=== PATIENT | female | born 1950 | race Caucasian/White ===

== ENCOUNTER 2016-12-25 10:57 | Inpatient (IN) | payer MEDICARE, BC ==
[2016-12-25] MEDS ORDERED: Temazepam 15 MG Cap PO PRN (11:21)
[2016-12-25] MEDS ORDERED: Acetaminophen 325 MG Tab PO PRN (11:21)
[2016-12-25] MEDS ORDERED: Magnesium Hydroxide 400 MG/5 ML Susp 30 ML Cup PO PRN (11:21)
[2016-12-25] MEDS: methylPREDNISolone Sodium Succinate 125 MG/2 ML SDV IVPUSH SCH (11:48)
[2016-12-25] MEDS: Lactated Ringers 1,000 ML IV SCH ×2 (12:12→23:00)
[2016-12-25] MEDS: Levofloxacin/Dextrose 5%-Water 500 MG in Premix Bag 1 BAG IV SCH (12:14)
[2016-12-25] MEDS ORDERED: Ibuprofen 200 MG Tab PO PRN (14:54)
[2016-12-25] MEDS: Albuterol/Ipratropium 3.0-0.5 MG/3 ML Neb Soln NEB SCH ×2 (15:58→20:47)
[2016-12-25] MEDS: Enoxaparin 40 MG/0.4 ML Syringe SUBCUT SCH (19:33)
[2016-12-25] MEDS: Atenolol 25 MG Tab PO SCH (19:33)
[2016-12-26] MEDS: Aspirin 325 MG Tab.EC PO SCH (07:55)
[2016-12-26] MEDS: atorvaSTATin 20 MG Tab PO SCH (07:56)
[2016-12-26] MEDS: Estradiol 1 MG Tab PO SCH (07:56)
[2016-12-26] MEDS: Atenolol 25 MG Tab PO SCH ×2 (07:57→19:22)
[2016-12-26] MEDS: Cholecalciferol (Vitamin D3) 1,000 Unit Tab PO SCH (07:57)
[2016-12-26] MEDS: Levofloxacin/Dextrose 5%-Water 500 MG in Premix Bag 1 BAG IV SCH (07:58)
[2016-12-26] MEDS: UBIDECARENONE 50 MG PO SCH (07:58)
[2016-12-26] MEDS: methylPREDNISolone Sodium Succinate 125 MG/2 ML SDV IVPUSH SCH (07:59)
[2016-12-26] MEDS: Albuterol/Ipratropium 3.0-0.5 MG/3 ML Neb Soln NEB SCH ×4 (09:05→20:30)
[2016-12-26] MEDS: Lactated Ringers 1,000 ML IV SCH ×2 (09:36→19:22)
--- NOTE | 2016-12-26 12:35 | PCM.PN ---
[id number] [employer] General: Reports: No Symptoms HEENT: Reports: no symptoms Pulmonary: Reports: shortness of breath, cough Cardiovascular: Reports: No Symptoms Gastrointestinal: Reports: No symptoms Genitourinary: Reports: no symptoms Musculoskeletal: Reports: no symptoms Skin: Reports: no symptoms Psychiatric: Reports: no symptoms (Had period of hypoxia last night, started on O2 per NC. Patient looks much better today, and states she feels better as well. No fever last night. Eating lunch. Will continue to monitor closely.) - Patient Data Vitals - most recent: Last Vital Signs Temp 97.0 F 12/26/16 08:00 Pulse 65 12/26/16 08:00 Resp 20 12/26/16 08:00 BP 121/66 12/26/16 08:00 Pulse Ox 93 L 12/26/16 08:00 Weight - most recent: 181 lb 6.4 oz I&O - last 24 hours: Intake & Output 12/25/16 12/26/16 12/26/16 22:59 06:59 14:59 Intake Total 1000 1000 Balance 1000 1000 Lab Results last 24 hrs: Laboratory Results - last 24 hr 12/25/16 Range/Units 11:21 Urine Color Yellow (YELLOW) Urine Appearance Clear (CLEAR) Urine pH 6.0 (4.5-8.0) Ur Specific [place] 1.010 (1.003-1.020) Urine Protein Negative (NEGATIVE) mg/dL Urine Glucose (UA) 250 H (NEGATIVE) mg/dL Urine Ketones Trace H (NEGATIVE) mg/dL Urine Occult Blood Negative (NEGATIVE) Urine Nitrite Negative (NEGATIVE) Urine Bilirubin Negative (NEGATIVE) Urine Urobilinogen 0.2 (0.2-1.0) EU/dL Ur Leukocyte Esterase Negative (NEGATIVE) Urine RBC Not seen (0-5) /HPF Urine WBC Not seen (0-5) /HPF Ur Squamous Epith Cells Moderate H (NOT SEEN) /HPF Urine Bacteria Few H (NOT SEEN) /HPF Urine Mucus Occasional H (NOT SEEN) /HPF Federico Results last 24 hrs: Microbiology 12/25/16 11:52 Aerobic Blood Culture - Preliminary Blood - Venous - Lab Draw NO GROWTH AFTER 1 DAY Anaerobic Blood Culture - Preliminary NO GROWTH AFTER 1 DAY 12/25/16 11:52 Aerobic Blood Culture - Preliminary Blood - Venous NO GROWTH AFTER 1 DAY Anaerobic Blood Culture - Preliminary NO GROWTH AFTER 1 DAY 12/25/16 11:21 Influenza Type A Antigen Screen - Final Nasopharyngeal Swab - Nare, Unspecified NEGATIVE INFLUENZA A VIRUS AG Influenza Type B Antigen Screen - Final Positive Influenza B Ag Med Orders - Current: Current Medications Acetaminophen (Tylenol) 650 mg PO Q4H PRN PRN Reason: Pain (Mild 1-3)/fever Albuterol/Ipratropium (Duoneb 3.0-0.5 Mg/3 Ml) 3 ml NEB QIDRT [facility] Last Admin: 12/26/16 09:05 Dose: 3 ml Aspirin (Ecotrin) 325 mg PO DAILY [facility] Last Admin: 12/26/16 07:55 Dose: 325 mg Atenolol (Tenormin) 25 mg PO BID [facility] Last Admin: 12/26/16 07:57 Dose: 25 mg Atorvastatin Calcium (Lipitor) 20 mg PO DAILY [facility] Last Admin: 12/26/16 07:56 Dose: 20 mg Cholecalciferol (Vitamin D3) 2,000 units PO DAILY [facility] Last Admin: 12/26/16 07:57 Dose: 2,000 units Enoxaparin Sodium (Lovenox) 40 mg SUBCUT Q24H [facility] Last Admin: 12/25/16 19:33 Dose: 40 mg Estradiol (Estradiol) 0.5 mg PO DAILY [facility] Last Admin: 12/26/16 07:56 Dose: 0.5 mg Lactated Ringer's (Ringers, Lactated) 1,000 mls @ 100 mls/hr IV ASDIRECTED [facility] Last Admin: 12/26/16 09:36 Dose: 100 mls/hr Levofloxacin/Dextrose 500 mg/ (Premix) 100 mls @ 100 mls/hr IV Q24H [facility] Last Admin: 12/26/16 07:58 Dose: 100 mls/hr Ibuprofen (Motrin) 600 mg PO Q6H PRN PRN Reason: Fever Last Admin: 12/25/16 15:57 Dose: 600 mg Magnesium Hydroxide (Milk Of Magnesia) 30 ml PO Q12H PRN PRN Reason: Constipation Magnesium Oxide (Magnesium Oxide) 500 mg PO DAILY [facility] Last Admin: 12/26/16 07:57 Dose: 500 mg Methylprednisolone Sodium Succinate (Solu-Medrol) 62.5 mg IVPUSH Q24H [facility] Last Admin: 12/26/16 07:59 Dose: 62.5 mg Ptom(Ubidecarenone [ (Co Q-10] 50 Mg)) 50 mg PO DAILY [facility] Last Admin: 12/26/16 07:58 Dose: Not Given Temazepam (Restoril) 15 mg PO BEDTIME PRN PRN Reason: Sleep - Exam Quality Assessment: supplemental oxygen General: alert, oriented HEENT: Pupils equal Neck: supple Lungs: Rales, Rhonchi Cardiovascular: Regular Rate Abdomen: bowel sounds present Back Exam: normal inspection Extremities: no edema Skin: warm Psy/Mental Status: alert - Problem List Review Problem List Initiated/Reviewed/Updated: Yes - My Orders Last 24 Hours: My Active Orders 12/27/16 08:00 CXR [Chest 2V] [CR] Routine
[2016-12-26] MEDS: Enoxaparin 40 MG/0.4 ML Syringe SUBCUT SCH (19:23)
[2016-12-27] MEDS: Lactated Ringers 1,000 ML IV SCH (05:15)
[2016-12-27] MEDS: methylPREDNISolone Sodium Succinate 125 MG/2 ML SDV IVPUSH SCH (07:49)
[2016-12-27] MEDS: Estradiol 1 MG Tab PO SCH (07:51)
[2016-12-27] MEDS: Aspirin 325 MG Tab.EC PO SCH (07:51)
[2016-12-27] MEDS: atorvaSTATin 20 MG Tab PO SCH (07:52)
[2016-12-27] MEDS: Atenolol 25 MG Tab PO SCH ×2 (07:53→19:32)
[2016-12-27] MEDS: Cholecalciferol (Vitamin D3) 1,000 Unit Tab PO SCH (07:54)
[2016-12-27] MEDS: UBIDECARENONE 50 MG PO SCH (07:54)
[2016-12-27] MEDS: Levofloxacin/Dextrose 5%-Water 500 MG in Premix Bag 1 BAG IV SCH (07:54)
[2016-12-27] MEDS: Albuterol/Ipratropium 3.0-0.5 MG/3 ML Neb Soln NEB SCH ×4 (09:25→21:00)
--- NOTE | 2016-12-27 09:47 | PCM.PN ---
- General Info Date of Service: 12/27/16 (Sitting up in bed loos very good, states she feels much better. BBS much improved. Will KVO IV) Functional Status: Reports: pain controlled - Review of Systems General: Reports: No Symptoms HEENT: Reports: no symptoms Pulmonary: Reports: cough Cardiovascular: Reports: No Symptoms Gastrointestinal: Reports: No symptoms Genitourinary: Reports: no symptoms Musculoskeletal: Reports: no symptoms Skin: Reports: no symptoms Neurological: Reports: No Symptoms - Patient Data Vitals - most recent: Last Vital Signs Temp 98.8 F 12/27/16 07:35 Pulse 57 L 12/27/16 07:53 Resp 20 12/27/16 07:35 BP 115/68 12/27/16 07:53 Pulse Ox 90 L 12/27/16 07:35 Weight - most recent: 181 lb 6.4 oz I&O - last 24 hours: Intake & Output 12/26/16 12/27/16 12/27/16 22:59 06:59 14:59 Intake Total 977 988 Balance 977 988 Federico Results last 24 hrs: Microbiology 12/25/16 11:52 Aerobic Blood Culture - Preliminary Blood - Venous - Lab Draw NO GROWTH AFTER 1 DAY Anaerobic Blood Culture - Preliminary NO GROWTH AFTER 1 DAY 12/25/16 11:52 Aerobic Blood Culture - Preliminary Blood - Venous NO GROWTH AFTER 1 DAY Anaerobic Blood Culture - Preliminary NO GROWTH AFTER 1 DAY Med Orders - Current: Current Medications Acetaminophen (Tylenol) 650 mg PO Q4H PRN PRN Reason: Pain (Mild 1-3)/fever Albuterol/Ipratropium (Duoneb 3.0-0.5 Mg/3 Ml) 3 ml NEB QIDRT [facility] Last Admin: 12/27/16 09:25 Dose: 3 ml Aspirin (Ecotrin) 325 mg PO DAILY [facility] Last Admin: 12/27/16 07:51 Dose: 325 mg Atenolol (Tenormin) 25 mg PO BID [facility] Last Admin: 12/27/16 07:53 Dose: 25 mg Atorvastatin Calcium (Lipitor) 20 mg PO DAILY [facility] Last Admin: 12/27/16 07:52 Dose: 20 mg Cholecalciferol (Vitamin D3) 2,000 units PO DAILY [facility] Last Admin: 12/27/16 07:54 Dose: 2,000 units Enoxaparin Sodium (Lovenox) 40 mg SUBCUT Q24H [facility] Last Admin: 12/26/16 19:23 Dose: 40 mg Estradiol (Estradiol) 0.5 mg PO DAILY [facility] Last Admin: 12/27/16 07:51 Dose: 0.5 mg Lactated Ringer's (Ringers, Lactated) 1,000 mls @ 100 mls/hr IV ASDIRECTED [facility] Last Admin: 12/27/16 05:15 Dose: 100 mls/hr Levofloxacin/Dextrose 500 mg/ (Premix) 100 mls @ 100 mls/hr IV Q24H [facility] Last Admin: 12/27/16 07:54 Dose: 100 mls/hr Ibuprofen (Motrin) 600 mg PO Q6H PRN PRN Reason: Fever Last Admin: 12/25/16 15:57 Dose: 600 mg Magnesium Hydroxide (Milk Of Magnesia) 30 ml PO Q12H PRN PRN Reason: Constipation Magnesium Oxide (Magnesium Oxide) 500 mg PO DAILY [facility] Last Admin: 12/27/16 07:52 Dose: 500 mg Methylprednisolone Sodium Succinate (Solu-Medrol) 62.5 mg IVPUSH Q24H [facility] Last Admin: 12/27/16 07:49 Dose: 62.5 mg Ptom(Ubidecarenone [ (Co Q-10] 50 Mg)) 50 mg PO DAILY [facility] Last Admin: 12/27/16 07:54 Dose: Not Given Temazepam (Restoril) 15 mg PO BEDTIME PRN PRN Reason: Sleep - Problem List Review Problem List Initiated/Reviewed/Updated: Yes - My Orders Last 24 Hours: My Active Orders 12/27/16 08:00 CXR [Chest 2V] [CR] Routine
[2016-12-27] MEDS ORDERED: Sodium Chloride 0.9% 1,000 ML IV SCH (10:00)
[2016-12-27] MEDS ORDERED: Lactated Ringers 1,000 ML IV SCH (14:10)
[2016-12-27] MEDS: Enoxaparin 40 MG/0.4 ML Syringe SUBCUT SCH (19:32)
[2016-12-28] MEDS: Levofloxacin/Dextrose 5%-Water 500 MG in Premix Bag 1 BAG IV SCH (07:40)
[2016-12-28] MEDS: Estradiol 1 MG Tab PO SCH (07:41)
[2016-12-28] MEDS: Atenolol 25 MG Tab PO SCH (07:42)
[2016-12-28] MEDS: Cholecalciferol (Vitamin D3) 1,000 Unit Tab PO SCH (07:42)
[2016-12-28 07:43] VITALS: BP 123/62
[2016-12-28] MEDS: atorvaSTATin 20 MG Tab PO SCH (07:43)
[2016-12-28] MEDS: methylPREDNISolone Sodium Succinate 125 MG/2 ML SDV IVPUSH SCH (07:43)
[2016-12-28] MEDS: Aspirin 325 MG Tab.EC PO SCH (07:44)
[2016-12-28] MEDS: UBIDECARENONE 50 MG PO SCH (07:44)
[2016-12-28] MEDS: Albuterol/Ipratropium 3.0-0.5 MG/3 ML Neb Soln NEB SCH (09:30)
--- NOTE | 2016-12-29 07:22 | DISCH ---
HISTORY: Goldie Mcclain is a 66-year-old white female, who presents herself to clinic, high fever, cough, with a diagnosis influenza B and pneumonitis. She was now started on RT treatments, IV steroids, intravenous antibiotics. At time of discharge, just a little bit of wheezing on that right lung; otherwise, she felt good, afebrile. Blood pressure was good. Lab and x- ray here in the hospital, she had some glycosuria, probably from the steroids. Positive influenza B. CBC looked good. Panel-8 looked good. Urinalysis looked good. DISPOSITION: The patient discharged home. We will see her back on a p.r.n. basis. DISCHARGE MEDICATIONS: Home medications plus Levaquin 500 daily for 6 days, prednisone 20 daily for 5 days. DISCHARGE DIAGNOSIS: 1. PNEUMONITIS. 2. INFLUENZA B. 3. HYPERTENSION. 4. HYPERLIPIDEMIA. DWAIN/HARI /[id number]
== END 2016-12-28 11:45 | disposition home or self-care (01) | DRG 195 ==
LOC: CC.MS 10:57 → UNDOADMIN 10:57 → CC.MS 11:22 → UNDOADMIN 11:22
PROVIDERS: ADMIT General Practice; ATTEND General Practice
DX: J10.00 Influenza due to other identified influenza virus with unspecified type of pneumonia (principal); I10 Essential (primary) hypertension; E78.5 Hyperlipidemia, unspecified; R09.02 Hypoxemia
CPT/HCPCS: 36415; 71020; 80053; 81001; 83735; 84443; 85025; 86140; 87040; 87804; 93005; 93010; 94640; A9270-GY; J1650; J1956; J2930; J7120

== ENCOUNTER 2017-11-21 17:47 | Inpatient (IN) | payer MEDICARE, BC ==
[2017-11-21] MEDS ORDERED: Ondansetron 4 MG/2 ML SDV IVPUSH PRN (18:02)
[2017-11-21] MEDS: Lactated Ringers 1,000 ML IV SCH (18:10)
--- NOTE | 2017-11-21 18:34 | EDM.PDOC ---
ED HPI GENERAL MEDICAL PROBLEM - General Chief Complaint: Gastrointestinal Problem Stated Complaint: vomiting Time Seen by Provider: 11/21/17 18:13 Source of Information: Reports: Patient History Limitations: Reports: No Limitations - History of Present Illness INITIAL COMMENTS - FREE TEXT/NARRATIVE: Patient presents to ER with complaints of abdominal discomfort, nausea and diarrhea. SHe had a bunionectomy on November 05 as well as they fixed her hammer toe on the 2nd digit. Saw the doctor on to have her sutures out, was feeling nauseated at that time. She states she was given Zofran to use for the nausea and they felt it was "her bodies response to the trauma with surgery". The Zofran didn't really seem to help and it caused a headache. She continually feels nauseated, has not vomited but is not eating or drinking well. Today, started with diarrhea and has had 7 loose stools since this am. She denies any blood in her stools. Patient denies fever. Relates that they did feel her surgical foot looked good, no concerns of infection. She has had a previous appendectomy. No food intolerances on a normal basis but states food is not agreeing with her right now. She did eat at [employer] that day and wonders if that caused this, however, she was already nauseated prior. Onset: Gradual Duration: Day(s): Location: Reports: Abdomen Quality: Reports: Ache Severity: Moderate Associated Symptoms: Reports: Headaches, Loss of Appetite, Nausea/Vomiting. Denies: Confusion, Chest Pain, Cough, Fever/Chills, Shortness of Breath, Weakness Abdominal Pain Score (Numeric/FACES): 10 - Related Data Allergies Allergy/AdvReac Type Severity Reaction Status Date / Time meperidine [From Demerol] Allergy Other Verified 12/25/16 11:15 Home Meds: Home Meds Aspirin 325 mg PO DAILY 06/03/16 [History] Atenolol 25 mg PO BID 06/03/16 [History] Cholecalciferol (Vitamin D3) [Vitamin D3] 2,000 unit PO DAILY 06/03/16 [History] Magnesium 500 mg PO DAILY 06/03/16 [History] Ubidecarenone [Co Q-10] 50 mg PO DAILY 06/03/16 [History] atorvaSTATin Calcium [Atorvastatin Calcium] 20 mg PO DAILY 06/03/16 [History] Estradiol 0.5 mg PO DAILY 12/25/16 [History] Past Medical History HEENT History: Reports: Impaired Vision Cardiovascular History: Reports: High Cholesterol, Hypertension, Other (See Below) Other Cardiovascular History: VENOUS INSUFFICIENCY, BLOOD CLOTTING DISORDER Respiratory History: Reports: None Gastrointestinal History: Reports: None Genitourinary History: Reports: None, Other (See Below) Other Genitourinary History: NOCTURIA, HOT FLASHES [employer]ACHINE History: Reports: None Musculoskeletal History: Reports: Arthritis, Gout, Osteoporosis, Other (See Below) Other Musculoskeletal History: CARPAL TUNNEL SYNDROME, CERVICAL DISC DISEASE Neurological History: Reports: None Psychiatric History: Reports: None Endocrine/Metabolic History: Reports: Vitamin D Deficiency, Other (See Below) Other Endocrine/Metabolic History: THYROID NODULE Hematologic History: Reports: None Oncologic (Cancer) History: Reports: None Dermatologic History: Reports: None, Other (See Below) Other Dermatologic History: ACTINIC KERATOSIS - Infectious Disease History Infectious Disease History: Reports: None - Past Surgical History Head Surgeries/Procedures: Reports: None HEENT Surgical History: Reports: Cataract Surgery, Tonsillectomy Cardiovascular Surgical History: Reports: None GI Surgical History: Reports: Appendectomy Female Surgical History: Reports: Breast Reduction, Hysterectomy, Oophorectomy, Tubal Ligation Social & Family History - Tobacco Use Smoking Status *Q: Never Smoker - Recreational Drug Use Recreational Drug Use: No ED ROS GENERAL - Review of Systems Review Of Systems: See Below Constitutional: Reports: Chills, Malaise, Weakness, Fatigue, Decreased Appetite. Denies: Fever HEENT: Reports: No Symptoms Respiratory: Denies: Shortness of Breath, Wheezing, Cough Cardiovascular: Denies: Chest Pain, Edema, Lightheadedness Endocrine: Reports: Fatigue GI/Abdominal: Reports: Abdominal Pain, Diarrhea, Decreased Appetite, Nausea. Denies: Black Stool, Bloody Stool, Vomiting : Reports: No Symptoms Musculoskeletal: Reports: Foot Pain Skin: Reports: No Symptoms, Other (incisions to right foot from recent surgery) Neurological: Reports: No Symptoms ED EXAM, GI/ABD - Physical Exam Exam: See Below Exam Limited By: No Limitations General Appearance: Alert, WD/WN, Mild Distress Ears: Normal External Exam, Normal TMs Nose: Normal Inspection, Normal Mucosa, No Blood Throat/Mouth: Normal Inspection, Normal Oropharynx Head: Normocephalic Neck: Normal Inspection, Supple, Non-Tender Respiratory/Chest: No Respiratory Distress, Lungs Clear, Normal Breath Sounds Cardiovascular: Regular Rate, Rhythm GI/Abdominal Exam: Normal Bowel Sounds, Soft, Non-Tender Extremities: Normal Inspection, Normal Capillary Refill Neurological: Alert, Oriented Skin Exam: Warm, Dry Course - Vital Signs Last Recorded V/S: Last Vital Signs Temp 97.6 F 11/21/17 17:51 Pulse 81 11/21/17 17:51 Resp 18 11/21/17 17:51 BP 107/62 11/21/17 17:51 Pulse Ox 99 11/21/17 17:51 - Orders/Labs/Meds Orders: Active Orders 24 hr Category Date Time Status AMYLASE [CHEM] Stat Lab 11/21/17 18:02 Ordered C-REACTIVE PROTEIN [CHEM] Stat Lab 11/21/17 18:02 Ordered COMPREHENSIVE METABOLIC PN,CMP [CHEM] Stat Lab 11/21/17 18:02 Ordered Lactated Ringers [Ringers, Lactated] 1,000 ml Med 11/21/17 18:15 Active IV ASDIRECTED Ondansetron [Zofran] Med 11/21/17 18:02 Active 4 mg IVPUSH Q6H PRN Medication Orders Lactated Ringer's (Ringers, Lactated) 1,000 mls @ 500 mls/hr IV ASDIRECTED [facility] Last Admin: 11/21/17 18:10 Dose: 500 mls/hr Ondansetron HCl (Zofran) 4 mg IVPUSH Q6H PRN PRN Reason: Nausea Last Admin: 11/21/17 18:10 Dose: 4 mg Labs: Laboratory Tests 11/21/17 11/21/17 Range/Units 18:02 18:02 WBC 10.2 H (5.0-10.0) 10^3/uL RBC 4.44 (4.00-5.50) 10^6/uL Hgb 14.1 (12.0-16.0) g/dL Hct 40.5 (37.0-47.0) % MCV 91.2 (82.0-94.0) fL MCH 31.8 (27.0-32.0) pg MCHC 34.8 (33.0-38.0) g/dL RDW Coeff of [place] 11.7 (11.0-15.0) % Plt Count 255 (150-400) 10^3/uL Neut % (Auto) 73.2 (35-85) % Lymph % (Auto) 18.6 (10-55) % [place] % (Auto) 7.0 (0-16) % Eos % (Auto) 1.0 (0-5) % Baso % (Auto) 0.2 (0-3) % Neut # (Auto) 7.44 H (1.80-7.00) 10^3/uL Lymph # (Auto) 1.89 (1.00-4.80) 10^3/uL [place] # (Auto) 0.71 (0.00-0.80) 10^3/uL Eos # (Auto) 0.10 (0.00-0.45) 10^3/uL Baso # (Auto) 0.02 10^3/uL Urine Color Yellow (YELLOW) Urine Appearance Clear (CLEAR) Urine pH 7.5 (4.5-8.0) Ur Specific [place] 1.015 (1.003-1.020) Urine Protein Trace H (NEGATIVE) mg/dL Urine Glucose (UA) Negative (NEGATIVE) mg/dL Urine Ketones Negative (NEGATIVE) mg/dL Urine Occult Blood Negative (NEGATIVE) Urine Nitrite Negative (NEGATIVE) Urine Bilirubin Negative (NEGATIVE) Urine Urobilinogen 0.2 (0.2-1.0) EU/dL Ur Leukocyte Esterase Negative (NEGATIVE) Meds: Medications Generic Name Dose Route Start Last Admin Trade Name Freq PRN Reason Stop Dose Admin Lactated Ringer's 1,000 mls @ 500 mls/hr 11/21/17 18:15 11/21/17 18:10 Ringers, Lactated IV 500 mls/hr ASDIRECTED [facility] Administration Ondansetron HCl 4 mg 11/21/17 18:02 11/21/17 18:10 Zofran IVPUSH 4 mg Q6H PRN Administration Nausea Departure - Departure Time of Disposition: 18:40 Disposition: Refer to Observation Condition: Fair Clinical Impression: Gastroenteritis - Discharge Information Forms: ED Department Discharge - Problem List & Annotations (1) Gastroenteritis SNOMED Code(s): 54159695 Code(s): K52.9 - NONINFECTIVE GASTROENTERITIS AND COLITIS, UNSPECIFIED Status: Acute Priority: High Current Visit: Yes - Problem List Review Problem List Initiated/Reviewed/Updated: Yes - My Orders Last 24 Hours: My Active Orders 11/21/17 18:02 AMYLASE [CHEM] Stat C-REACTIVE PROTEIN [CHEM] Stat COMPREHENSIVE METABOLIC PN,CMP [CHEM] Stat Ondansetron [Zofran] 4 mg IVPUSH Q6H PRN 11/21/17 18:15 Lactated Ringers [Ringers, Lactated] 1,000 ml IV ASDIRECTED - Assessment/Plan Admission H&P: Please use this note as an admission H&P Last 24 Hours: My Active Orders 11/21/17 18:02 AMYLASE [CHEM] Stat C-REACTIVE PROTEIN [CHEM] Stat COMPREHENSIVE METABOLIC PN,CMP [CHEM] Stat Ondansetron [Zofran] 4 mg IVPUSH Q6H PRN 11/21/17 18:15 Lactated Ringers [Ringers, Lactated] 1,000 ml IV ASDIRECTED Assessment:: Gastroenteritis Plan: Admit to observation. IV fluids. Will collect stool studies. Ligiafran for nausea. Dr. Shearer to see in am.
[2017-11-21] MEDS ORDERED: Ondansetron 4 MG Tab.DIS PO PRN (19:10)
[2017-11-21] MEDS ORDERED: Temazepam 15 MG Cap PO PRN (19:10)
[2017-11-21] MEDS: fentaNYL 100 MCG/2 ML SDV IVPUSH PRN ×3 (19:42→23:13)
[2017-11-21] MEDS: Pantoprazole 40 MG Vial IVPUSH SCH (19:58)
[2017-11-21] MEDS: atorvaSTATin 20 MG Tab PO SCH (19:58)
[2017-11-21] MEDS: Atenolol 25 MG Tab PO SCH (19:59)
[2017-11-21] MEDS ORDERED: Enoxaparin 40 MG/0.4 ML Syringe SUBCUT SCH (20:00)
[2017-11-21] MEDS ORDERED: Iopamidol 755 Mg/ML 100 ML Bottle IVPUSH ONE (22:01)
[2017-11-21] MEDS: Acetaminophen 325 MG Tab PO PRN (23:52)
[2017-11-21] MEDS: Enoxaparin 80 MG/0.8 ML Syringe SUBCUT SCH (23:52)
[2017-11-22] MEDS: Lactated Ringers 1,000 ML IV SCH ×3 (02:01→18:18)
[2017-11-22] MEDS: fentaNYL 100 MCG/2 ML SDV IVPUSH PRN ×3 (04:10→08:52)
[2017-11-22 07:42] LABS: CHLORIDE,CL 104 mEq/L (98-106); SODIUM,NA 140 mEq/L (136-145)
[2017-11-22] MEDS ORDERED: UBIDECARENONE 50 MG PO SCH (08:00)
[2017-11-22] MEDS ORDERED: Estradiol 1 MG Tab PO SCH (08:00)
[2017-11-22] MEDS: Acetaminophen 325 MG Tab PO PRN (08:56)
[2017-11-22] MEDS: Atenolol 25 MG Tab PO SCH ×2 (08:57→20:07)
[2017-11-22] MEDS: Aspirin 325 MG Tab PO SCH (08:57)
[2017-11-22] MEDS: Cholecalciferol (Vitamin D3) 1,000 Unit Tab PO SCH (09:12)
[2017-11-22] MEDS: Enoxaparin 80 MG/0.8 ML Syringe SUBCUT SCH (11:21)
[2017-11-22] MEDS: Acetaminophen/HYDROcodone 325-5 MG Tab PO PRN ×2 (11:24→16:41)
--- NOTE | 2017-11-22 11:32 | PN ---
DATE: 11/22/2017 S: This is a lady who came in yesterday with vomiting, diarrhea, probably from a flu bug but had a high D-dimer. So Roopa Alba's CTA showed multiple right pulmonary emboli. She was started on Lovenox last night. O: NECK: Supple. CHEST: Decreased breath sounds, right base. CARDIAC: Sounds were good. ABDOMEN: Soft. EXTREMITIES: Unremarkable. ASSESSMENT: 1. MULTIPLE RIGHT PULMONARY EMBOLI. 2. GASTRITIS, PROBABLY VIRAL, I BELIEVE, THAT IS WHY HER C-REACTIVE PROTEIN IS ELEVATED, BUT WE WILL FOLLOW. I DO NOT THINK SHE NEEDS ANTIBIOTICS. SHE JUST NEEDS ANTICOAGULATION AND PAIN CONTROL. DWAIN/HARI /[id number]
[2017-11-22] MEDS ORDERED: Warfarin 5 MG Tab PO ONE (12:00)
[2017-11-22] MEDS: atorvaSTATin 20 MG Tab PO SCH (20:07)
[2017-11-22] MEDS: Pantoprazole 40 MG Vial IVPUSH SCH (20:09)
[2017-11-23] MEDS: Enoxaparin 80 MG/0.8 ML Syringe SUBCUT SCH ×3 (00:03→23:42)
[2017-11-23] MEDS: Acetaminophen/HYDROcodone 325-5 MG Tab PO PRN ×3 (00:03→19:33)
[2017-11-23] MEDS: Lactated Ringers 1,000 ML IV SCH (02:12)
[2017-11-23] MEDS: Aspirin 325 MG Tab PO SCH (09:39)
[2017-11-23] MEDS: Atenolol 25 MG Tab PO SCH ×2 (09:39→19:32)
[2017-11-23] MEDS: Cholecalciferol (Vitamin D3) 1,000 Unit Tab PO SCH (09:40)
[2017-11-23 09:49] LABS: CHLORIDE,CL 104 mEq/L (98-106); SODIUM,NA 139 mEq/L (136-145)
--- NOTE | 2017-11-23 10:26 | PN ---
DATE: 11/23/2017 S: Goldie Mcclain is in with pulmonary emboli. Still running a low- grade fever and also C-reactive protein of 47. O: NECK: Supple. CHEST: Basically clear, sounds are good. ABDOMEN: Soft. Recently she had a bunionectomy of her right foot, a little bit warmth, and question if there is a mild cellulitis, so started on Rocephin. Continue anticoagulation. DWAIN/HARI /[id number]
[2017-11-23] MEDS ORDERED: cefTRIAXone 1 GM Vial IVPUSH SCH (10:45)
[2017-11-23] MEDS: Acetaminophen 325 MG Tab PO PRN (11:52)
[2017-11-23] MEDS ORDERED: Warfarin 5 MG Tab PO ONE (12:00)
[2017-11-23] MEDS: atorvaSTATin 20 MG Tab PO SCH (19:33)
[2017-11-23] MEDS: Pantoprazole 40 MG Vial IVPUSH SCH (19:35)
[2017-11-24] MEDS: Acetaminophen/HYDROcodone 325-5 MG Tab PO PRN ×2 (03:57→12:01)
[2017-11-24 07:20] LABS: CHLORIDE,CL 105 mEq/L (98-106); SODIUM,NA 139 mEq/L (136-145)
[2017-11-24] MEDS: Aspirin 325 MG Tab PO SCH (07:36)
[2017-11-24] MEDS: Cholecalciferol (Vitamin D3) 1,000 Unit Tab PO SCH (07:36)
[2017-11-24] MEDS: Atenolol 25 MG Tab PO SCH ×2 (07:36→19:36)
--- NOTE | 2017-11-24 08:43 | PCM.PN ---
- General Info Date of Service: 11/24/17 Admission Dx/Problem (Free Text): Dehydration Gastroenteritis Subjective Update: Goldie is a 67 year old female who was admitted to the hospital from the ED on 11/21/2017 for gastroenteritis. That evening she developed SOB and right lower chest pain. D-Dimer was elevated so Chest CTA was completed and patient was found to have right pulmonary emboli. She was started on Coumadin and bridged with lovenox until INR therapeutic. She reports that this morning she is feeling "lousy." She reports she had a rough night last night. She continues to have low grade fever. Continues to have pain to her right lower chest. Reports her foot, where she had previous bunionectomy, is feeling good. She has been eating more, but continues to have decreased appetite. Functional Status: Reports: Pain Controlled, Tolerating Diet - Review of Systems General: Reports: Fever, Fatigue, Night Sweats Pulmonary: Reports: Shortness of Breath, Pleuritic Chest Pain. Denies: Cough, Sputum, Wheezing Cardiovascular: Reports: Dyspnea on Exertion. Denies: Edema, Lightheadedness Gastrointestinal: Reports: No Symptoms Genitourinary: Reports: No Symptoms Musculoskeletal: Reports: No Symptoms Skin: Reports: No Symptoms Neurological: Reports: No Symptoms Psychiatric: Reports: No Symptoms - Patient Data Vitals - Most Recent: Last Vital Signs Temp 99.6 F 11/24/17 08:00 Pulse 80 11/24/17 08:00 Resp 20 11/24/17 08:00 BP 117/52 L 11/24/17 08:00 Pulse Ox 95 11/24/17 08:00 Weight - Most Recent: 176 lb 4.8 oz Lab Results Last 24 Hours: Laboratory Results - last 24 hr 11/23/17 11/23/17 11/23/17 Range/Units 07:17 07:17 07:17 WBC 8.9 (5.0-10.0) 10^3/uL RBC 3.52 L (4.00-5.50) 10^6/uL Hgb 11.1 L (12.0-16.0) g/dL Hct 33.3 L (37.0-47.0) % MCV 94.6 H (82.0-94.0) fL MCH 31.5 (27.0-32.0) pg MCHC 33.3 (33.0-38.0) g/dL RDW Coeff of Ashley 11.9 (11.0-15.0) % Plt Count 201 (150-400) 10^3/uL Neut % (Auto) 72.2 (35-85) % Lymph % (Auto) 18.6 (10-55) % Leon % (Auto) 8.2 (0-16) % Eos % (Auto) 0.8 (0-5) % Baso % (Auto) 0.2 (0-3) % Neut # (Auto) 6.46 (1.80-7.00) 10^3/uL Lymph # (Auto) 1.66 (1.00-4.80) 10^3/uL Leon # (Auto) 0.73 (0.00-0.80) 10^3/uL Eos # (Auto) 0.07 (0.00-0.45) 10^3/uL Baso # (Auto) 0.02 10^3/uL PT 18.8 H (9.7-12.3) SEC INR 1.90 H (0.92-1.18) Sodium 139 (136-145) mEq/L Potassium 3.6 (3.5-5.0) mEq/L Chloride 104 (98-106) mEq/L Carbon Dioxide 26 (21-32) mmol/L BUN 8 (7-18) mg/dL Creatinine 0.8 (0.6-1.0) mg/dL Est Cr Clr Drug Dosing 60.56 mL/min Estimated GFR (MDRD) > 60 (>=60) mL/min Glucose 104 H (75-99) mg/dL Calcium 8.3 L (8.4-10.1) mg/dL C-Reactive Protein 47.1 H (0.2-0.8) mg/dL 11/24/17 11/24/17 11/24/17 Range/Units 06:45 06:45 06:45 WBC 7.4 (5.0-10.0) 10^3/uL RBC 3.47 L (4.00-5.50) 10^6/uL Hgb 10.9 L (12.0-16.0) g/dL Hct 32.9 L (37.0-47.0) % MCV 94.8 H (82.0-94.0) fL MCH 31.4 (27.0-32.0) pg MCHC 33.1 (33.0-38.0) g/dL RDW Coeff of Ashley 11.8 (11.0-15.0) % Plt Count 197 (150-400) 10^3/uL Neut % (Auto) 67.9 (35-85) % Lymph % (Auto) 21.6 (10-55) % Leon % (Auto) 8.8 (0-16) % Eos % (Auto) 1.4 (0-5) % Baso % (Auto) 0.3 (0-3) % Neut # (Auto) 5.01 (1.80-7.00) 10^3/uL Lymph # (Auto) 1.59 (1.00-4.80) 10^3/uL Leon # (Auto) 0.65 (0.00-0.80) 10^3/uL Eos # (Auto) 0.10 (0.00-0.45) 10^3/uL Baso # (Auto) 0.02 10^3/uL PT 30.1 H (9.7-12.3) SEC INR 3.15 H (0.92-1.18) Sodium 139 (136-145) mEq/L Potassium 3.8 (3.5-5.0) mEq/L Chloride 105 (98-106) mEq/L Carbon Dioxide 28 (21-32) mmol/L BUN 11 (7-18) mg/dL Creatinine 0.9 (0.6-1.0) mg/dL Est Cr Clr Drug Dosing 53.83 mL/min Estimated GFR (MDRD) > 60 (>=60) mL/min Glucose 106 H (75-99) mg/dL Calcium 7.8 L (8.4-10.1) mg/dL C-Reactive Protein 20.9 H (0.2-0.8) mg/dL Med Orders - Current: Current Medications Acetaminophen (Tylenol) 650 mg PO Q4H PRN PRN Reason: Pain (Mild 1-3)/fever Last Admin: 11/23/17 11:52 Dose: 650 mg Hydrocodone Bitart/Acetaminophen ([place] 325-5 Mg) 1 - 2 tab PO Q6H PRN PRN Reason: Pain Last Admin: 11/24/17 03:57 Dose: 1 tab Aspirin (Aspirin) 325 mg PO DAILY [facility] Last Admin: 11/24/17 07:36 Dose: 325 mg Atenolol (Tenormin) 25 mg PO BID [facility] Last Admin: 11/24/17 07:36 Dose: 25 mg Atorvastatin Calcium (Lipitor) 20 mg PO BEDTIME [facility] Last Admin: 11/23/17 19:33 Dose: 20 mg Ceftriaxone Sodium (Rocephin) 1 gm IVPUSH Q24H [facility] Last Admin: 11/23/17 11:37 Dose: 1 gm Cholecalciferol (Vitamin D3) 2,000 units PO DAILY [facility] Last Admin: 11/24/17 07:36 Dose: 2,000 units Fentanyl (Sublimaze) 25 - 50 mcg IVPUSH Q2H PRN PRN Reason: Pain Last Admin: 11/22/17 08:52 Dose: 50 mcg Magnesium Oxide (Magnesium Oxide) 500 mg PO DAILY [facility] Last Admin: 11/24/17 07:36 Dose: 500 mg Ubidecarenone [Co Q- (10] 50mg) 50 mg PO DAILY [facility] Ondansetron HCl (Zofran) 4 mg IVPUSH Q6H PRN PRN Reason: Nausea Last Admin: 11/21/17 18:10 Dose: 4 mg Ondansetron HCl (Zofran Odt) 4 mg PO Q4H PRN PRN Reason: nausea, able to take PO Pantoprazole Sodium (Protonix Iv) 40 mg IVPUSH Q24H [facility] Last Admin: 11/23/17 19:35 Dose: 40 mg Temazepam (Restoril) 15 mg PO BEDTIME PRN PRN Reason: Sleep Discontinued Medications Enoxaparin Sodium (Lovenox) 40 mg SUBCUT BEDTIME [facility] Last Admin: 11/21/17 19:58 Dose: 40 mg Enoxaparin Sodium (Lovenox) 80 mg SUBCUT Q12H [facility] Last Admin: 11/23/17 23:42 Dose: 80 mg Estradiol (Estradiol) 0.5 mg PO DAILY [facility] Last Admin: 11/22/17 08:57 Dose: 0.5 mg Fentanyl (Sublimaze) 25 - 50 mcg IVPUSH Q6H PRN PRN Reason: Pain Last Admin: 11/21/17 20:23 Dose: 25 mcg Lactated Ringer's (Ringers, Lactated) 1,000 mls @ 125 mls/hr IV ASDIRECTED DIVINE Last Admin: 11/23/17 02:12 Dose: 125 mls/hr Iopamidol (Isovue-370 (76%)) 100 ml IVPUSH ONETIME ONE Stop: 11/21/17 22:02 Last Admin: 11/21/17 22:31 Dose: 100 ml Warfarin Sodium (Coumadin) 10 mg PO ONETIME ONE Stop: 11/22/17 12:01 Last Admin: 11/22/17 11:21 Dose: 10 mg Warfarin Sodium (Coumadin) 5 mg PO ONETIME ONE Stop: 11/23/17 12:01 Last Admin: 11/23/17 11:37 Dose: 5 mg - Exam Quality Assessment: DVT Prophylaxis. No: Supplemental Oxygen General: Alert, Oriented, No Acute Distress Neck: Supple Lungs: Clear to Auscultation, Normal Respiratory Effort Cardiovascular: Regular Rate, Regular Rhythm GI/Abdominal Exam: Normal Bowel Sounds, Soft, Non-Tender, No Organomegaly, No Distention, No Abnormal Bruit, No Mass, Pelvis Stable Back Exam: Normal Inspection, Full Range of Motion. No: CVA Tenderness (L), CVA Tenderness (R) Extremities: Normal Inspection, Normal Range of Motion, Non-Tender, No Pedal Edema, Normal Capillary Refill Peripheral Pulses: 2+: Dorsalis Pedis (R) Skin: Warm, Dry, Intact Wound/Incisions: Healing Well, Dressing Dry and Intact Neurological: No New Focal Deficit Psy/Mental Status: Alert, Normal Affect, Normal Mood - Problem List & Annotations (1) Pulmonary embolism and infarction SNOMED Code(s): 4546008635166 Code(s): I26.99 - OTHER PULMONARY EMBOLISM WITHOUT ACUTE COR PULMONALE Status: Acute Priority: High Current Visit: Yes (2) Hyperlipidemia SNOMED Code(s): 58439367 Code(s): E78.5 - HYPERLIPIDEMIA, UNSPECIFIED Status: Chronic Priority: Low Current Visit: No (3) Hypertension SNOMED Code(s): 78901140 Code(s): I10 - ESSENTIAL (PRIMARY) HYPERTENSION Status: Chronic Priority : Low Current Visit: No (4) Cellulitis of foot without toes, right SNOMED Code(s): 955176451 Code(s): L03.115 - CELLULITIS OF RIGHT LOWER LIMB Status: Acute Current Visit: Yes - Problem List Review Problem List Initiated/Reviewed/Updated: Yes - My Orders Last 24 Hours: My Active Orders 11/23/17 10:45 cefTRIAXone [Rocephin] 1 gm IVPUSH Q24H 11/23/17 Breakfast Regular Diet [DIET] 11/24/17 12:00 Warfarin [Coumadin] 2.5 mg PO ONETIME 11/25/17 06:00 BMP [BASIC METABOLIC PANEL,BMP] [CHEM] DAILY C-REACTIVE PROTEIN [CHEM] DAILY CBC WITH AUTO DIFF [HEME] DAILY INR,PT,PROTHROMBIN TIME [COAG] DAILY - Assessment Assessment:: Right pulmonary Emboli Cellulitis Hypertension Hyperlipidemia - Plan Plan:: Patient continues to have low grade fever. Right foot is mildly reddened and warm to touch. No purulent drainage noted. Did have night sweats last night. She is clammy at time of morning rounds. CRP down to 20.9 from 47.1 yesterday. WBC remains normal at 7.4. Encourage incentive spirometer use Discontinue lovenox as INR is therapeutic at 3.15. 2.5 mg today. Possible discharge tomorrow if patient remains afebrile and INR remains therapeutic. Patient was examined by Dr. Shearer upon morning rounds as well, who agrees with POC.
[2017-11-24] MEDS: cefTRIAXone 1 GM Vial IVPUSH SCH (11:56)
[2017-11-24] MEDS ORDERED: Warfarin 2.5 MG Tab PO ONE (12:00)
[2017-11-24] MEDS: Acetaminophen 325 MG Tab PO PRN ×2 (16:36→21:20)
[2017-11-24] MEDS: atorvaSTATin 20 MG Tab PO SCH (19:36)
[2017-11-24] MEDS: Pantoprazole 40 MG Vial IVPUSH SCH (19:37)
[2017-11-25] MEDS: Acetaminophen 325 MG Tab PO PRN (07:34)
[2017-11-25 07:35] LABS: CHLORIDE,CL 104 mEq/L (98-106); SODIUM,NA 141 mEq/L (136-145)
[2017-11-25] MEDS: Cholecalciferol (Vitamin D3) 1,000 Unit Tab PO SCH (07:38)
[2017-11-25] MEDS: Atenolol 25 MG Tab PO SCH ×2 (07:38→21:01)
[2017-11-25] MEDS: Aspirin 325 MG Tab PO SCH (07:38)
[2017-11-25] MEDS ORDERED: Warfarin 5 MG Tab PO SCH (08:00)
--- NOTE | 2017-11-25 11:01 | PN ---
DATE: 11/25/2017 S: Goldie Mcclain is in with multiple pulmonary emboli. She says she feels better, less pain. O: NECK: Supple. CHEST: Clear. CARDIAC: Sounds are good. ABDOMEN: Soft. ASSESSMENT: MULTIPLE PULMONARY EMBOLI. P: Continue anticoagulation. C-reactive protein is up a little bit. I do not know if that is just related to C-reactive protein or whether there is a mild inflammation from her bunion surgery on her right foot, but continue antibiotics and continue watching her. DWAIN/HARI /[id number]
[2017-11-25] MEDS: cefTRIAXone 1 GM Vial IVPUSH SCH (11:47)
[2017-11-25] MEDS ORDERED: Iopamidol 755 Mg/ML 100 ML Bottle IVPUSH ONE (14:26)
[2017-11-25] MEDS ORDERED: Levofloxacin/Dextrose 5%-Water 500 MG in Premix Bag 1 BAG IV SCH (20:00)
[2017-11-25] MEDS: atorvaSTATin 20 MG Tab PO SCH (21:01)
[2017-11-25] MEDS: Pantoprazole 40 MG Vial IVPUSH SCH (21:01)
[2017-11-25] MEDS ORDERED: Loperamide 2 MG Cap PO PRN (22:27)
[2017-11-26 07:23] VITALS: BP 112/57
[2017-11-26 07:34] LABS: CHLORIDE,CL 105 mEq/L (98-106); SODIUM,NA 141 mEq/L (136-145)
[2017-11-26] MEDS: Cholecalciferol (Vitamin D3) 1,000 Unit Tab PO SCH (08:06)
[2017-11-26] MEDS: Aspirin 325 MG Tab PO SCH (08:06)
[2017-11-26] MEDS: Atenolol 25 MG Tab PO SCH (08:06)
--- NOTE | 2017-11-29 08:00 | DISCH ---
HOSPITAL COURSE: This is a 67-year-old white female came in with shortness of breath, chest pain, made diagnosis of multiple pulmonary emboli right side. She was started on anticoagulants, developed the fever and C-reactive proteins were elevated. So, I did a repeat CTA yesterday, no new blood clots, but she has now got a pleural effusion right lung with an infiltrate. CT abdomen looked good. Rest of lab, CBC looked good. Hemoglobin did drop a little bit, but it is back up to 11.6. Panel-8 were great. Urine was good. INRs were adequate. C- reactive protein got as high as 23, had dropped down to 11 today. DISPOSITION: The patient now discharged to swing bed. DISCHARGE INSTRUCTIONS: Continue IV therapy and monitoring anticoagulation. DISCHARGE MEDICATIONS: Hospital medications plus Zofran. DISCHARGE DIAGNOSIS: 1. PULMONARY EMBOLI RIGHT LOWER LOBE. 2. RIGHT LOWER LOBE PNEUMONITIS. DWAIN/HARI /[id number]
== END 2017-11-26 08:35 | disposition swing bed (61) | DRG 175 ==
LOC: CC.ED 17:47 → UNDOADMOB 18:30 → CC.MS 18:30 → OBSVTOIN 11-22 09:35
PROVIDERS: ADMIT Physician Assistant Medical; ATTEND General Practice
DX: I26.99 Other pulmonary embolism without acute cor pulmonale (principal); J18.9 Pneumonia, unspecified organism; K52.9 Noninfective gastroenteritis and colitis, unspecified; L03.115 Cellulitis of right lower limb; A08.4 Viral intestinal infection, unspecified; E78.00 Pure hypercholesterolemia, unspecified; H54.7 Unspecified visual loss; I10 Essential (primary) hypertension; I87.2 Venous insufficiency (chronic) (peripheral); M19.90 Unspecified osteoarthritis, unspecified site; M81.0 Age-related osteoporosis without current pathological fracture; R19.7 Diarrhea, unspecified; R10.9 Unspecified abdominal pain; R11.0 Nausea; R51 Headache; M50.90 Cervical disc disorder, unspecified, unspecified cervical region; E55.9 Vitamin D deficiency, unspecified; R35.1 Nocturia; R53.1 Weakness; R53.83 Other fatigue; M79.671 Pain in right foot; E04.1 Nontoxic single thyroid nodule; L57.0 Actinic keratosis; N95.1 Menopausal and female climacteric states; E78.5 Hyperlipidemia, unspecified; Z88.8 Allergy status to other drugs, medicaments and biological substances; Z90.710 Acquired absence of both cervix and uterus; Z79.82 Long term (current) use of aspirin; Z79.899 Other long term (current) drug therapy
CPT/HCPCS: 36415 ×2; 71046; 71275; 74019; 80048; 80053; 81003; 82150; 82550; 83615; 84484; 85025 ×2; 85379; 86140 ×2; 93005; 96361; 96374; 99284; A9270 ×7; C9113; J1650 ×2; J2405; J3010 ×6; J7120 ×2; Q9967 ×2; 74177; 85610; 96372; 96375; 96376; G0365; G0378; J0696; J1956

== ENCOUNTER 2017-11-26 08:36 | Inpatient (IN) | payer MEDICARE, BC ==
[2017-11-26] MEDS ORDERED: Acetaminophen/HYDROcodone 325-5 MG Tab PO PRN (10:21)
[2017-11-26] MEDS ORDERED: Ondansetron 4 MG/2 ML SDV IVPUSH PRN (10:21)
[2017-11-26] MEDS ORDERED: fentaNYL 100 MCG/2 ML SDV IVPUSH PRN (10:21)
[2017-11-26] MEDS ORDERED: Temazepam 15 MG Cap PO PRN (10:21)
[2017-11-26] MEDS ORDERED: Loperamide 2 MG Cap PO PRN (10:21)
[2017-11-26] MEDS: Ondansetron 4 MG Tab.DIS PO PRN ×2 (13:03→19:45)
[2017-11-26] MEDS: Acetaminophen 325 MG Tab PO PRN (18:53)
[2017-11-26] MEDS: Pantoprazole 40 MG Vial IVPUSH SCH (19:33)
[2017-11-26] MEDS: Atenolol 25 MG Tab PO SCH (19:36)
[2017-11-26] MEDS: atorvaSTATin 20 MG Tab PO SCH (19:36)
[2017-11-26] MEDS: Levofloxacin/Dextrose 5%-Water 500 MG in Premix Bag 1 BAG IV SCH (19:47)
[2017-11-27] MEDS: Cholecalciferol (Vitamin D3) 1,000 Unit Tab PO SCH (07:22)
[2017-11-27] MEDS: Aspirin 325 MG Tab PO SCH (07:22)
[2017-11-27] MEDS: Atenolol 25 MG Tab PO SCH ×2 (07:22→19:29)
[2017-11-27] MEDS ORDERED: Non-Formulary Medication 1 Each (Ubidecarenone [Co Q-10] 50 MG) PO SCH (08:00)
[2017-11-27] MEDS: Acetaminophen 325 MG Tab PO PRN (12:31)
[2017-11-27] MEDS ORDERED: Warfarin 5 MG Tab PO ONE (19:10)
[2017-11-27] MEDS: atorvaSTATin 20 MG Tab PO SCH (19:29)
[2017-11-27] MEDS: Pantoprazole 40 MG Vial IVPUSH SCH (19:31)
[2017-11-27] MEDS: Levofloxacin/Dextrose 5%-Water 500 MG in Premix Bag 1 BAG IV SCH (19:36)
[2017-11-28] MEDS: Aspirin 325 MG Tab PO SCH (07:54)
[2017-11-28] MEDS: Atenolol 25 MG Tab PO SCH ×2 (07:55→19:29)
[2017-11-28] MEDS: Cholecalciferol (Vitamin D3) 1,000 Unit Tab PO SCH (07:56)
[2017-11-28] MEDS: atorvaSTATin 20 MG Tab PO SCH (19:19)
[2017-11-28] MEDS: Pantoprazole 40 MG Vial IVPUSH SCH (19:20)
[2017-11-28] MEDS: Levofloxacin/Dextrose 5%-Water 500 MG in Premix Bag 1 BAG IV SCH (19:22)
[2017-11-28] MEDS ORDERED: Warfarin 5 MG Tab PO ONE (20:00)
[2017-11-29] MEDS: Aspirin 325 MG Tab PO SCH (07:32)
[2017-11-29] MEDS: Cholecalciferol (Vitamin D3) 1,000 Unit Tab PO SCH (07:32)
[2017-11-29 07:35] VITALS: BP 95/52
[2017-11-29] MEDS: Atenolol 25 MG Tab PO SCH (08:46)
--- NOTE | 2017-11-30 08:27 | DISCH ---
HISTORY: This is a 67-year-old white female came in with acute right pulmonary emboli. We did start her on anticoagulation, did nicely, but C-reactive protein was elevated. I did repeat a CTA of her chest and no further pulmonary emboli, but there was an effusion and an infiltrate. She was switched from Rocephin to Levaquin, responded nicely at the time of discharge. Lungs were relatively clear. She had no further nausea and felt great. CT of the abdomen was normal. LABORATORY DATA: C-reactive protein got as high as in the 30s, at the time of discharge 3.3. PHYSICAL EXAMINATION: NECK: Supple. CHEST: Clear. CARDIAC: Cardiac sounds are good. No edema. ABDOMEN: Soft. DISPOSITION: The patient now discharged home. We will see her back in the clinic in 2 days for an INR. DISCHARGE MEDICATIONS: Include all her home medications except we are going to discontinue the estradiol, decrease her atenolol to 25 daily, and add Levaquin 500 daily for 5 days. DISCHARGE DIAGNOSIS: 1. PULMONARY EMBOLISM. 2. PNEUMONITIS. 3. HYPERTENSION. 4. HYPERLIPIDEMIA. DWAIN/HARI /[id number]
== END 2017-11-29 11:05 | disposition home or self-care (01) | DRG 947 ==
LOC: UNDOADMIN 08:36 → CC.MS 08:36
PROVIDERS: ADMIT General Practice; ATTEND General Practice
DX: R53.1 Weakness (principal); I26.99 Other pulmonary embolism without acute cor pulmonale; J18.9 Pneumonia, unspecified organism; K52.9 Noninfective gastroenteritis and colitis, unspecified; R11.2 Nausea with vomiting, unspecified; R10.9 Unspecified abdominal pain; R51 Headache; H54.7 Unspecified visual loss; E78.00 Pure hypercholesterolemia, unspecified; I10 Essential (primary) hypertension; I87.2 Venous insufficiency (chronic) (peripheral); R35.1 Nocturia; N95.1 Menopausal and female climacteric states; M19.90 Unspecified osteoarthritis, unspecified site; M81.0 Age-related osteoporosis without current pathological fracture; M50.90 Cervical disc disorder, unspecified, unspecified cervical region; E55.9 Vitamin D deficiency, unspecified; L57.0 Actinic keratosis; R53.81 Other malaise; R53.83 Other fatigue; M79.673 Pain in unspecified foot; Z90.710 Acquired absence of both cervix and uterus; Z79.82 Long term (current) use of aspirin; Z79.899 Other long term (current) drug therapy; Z88.6 Allergy status to analgesic agent
CPT/HCPCS: 36415; 85025; 85610; 86140; A9270-GY; C9113; J1956

== ENCOUNTER 2019-11-12 22:15 | Inpatient (IN) | payer MEDICARE, BC ==
[2019-11-12] MEDS ORDERED: Ondansetron 4 MG/2 ML SDV IVPUSH STA (22:27)
--- NOTE | 2019-11-12 22:30 | EDM.PDOC ---
ED HPI GENERAL MEDICAL PROBLEM - General Chief Complaint: Flank Pain Stated Complaint: "Right flank pain" Time Seen by Provider: 11/12/19 22:25 Source of Information: Reports: Patient History Limitations: Reports: No Limitations - History of Present Illness INITIAL COMMENTS - FREE TEXT/NARRATIVE: This patient is a 69 year old female that presents to the ER. Patient reports that started yesterday late afternoon with constant right lower back pain. Patient reports the pain is worse with movement. The patient reports that yesterday she took a nap and woke up feeling like she had a fever, but none since. Patient denies holt, dizziness, n, v, d, f, cough, congestion, drainage, shortness of breath, mid or upper back pain, chest pain, pelvis pain, urinary/ bowel changes. The patient denies any leg pain, numbness, tingling, urinary or bowel incontinence. Denies any injury. Onset Date: 11/12/19 Onset Time: 16:00 Duration: Day(s): (1) Location: Reports: Back Quality: Reports: Sharp Severity: Severe Improves with: Reports: None Worsens with: Reports: Movement Associated Symptoms: Reports: Fever/Chills (when woke from nap yesterday, but not since per patient. ). Denies: Confusion, Chest Pain, Cough, cough w sputum , Diaphoresis, Headaches, Loss of Appetite, Malaise, Nausea/Vomiting, Rash, Seizure, Shortness of Breath, Syncope, Weakness Treatments RADIOACTIVITY TECHNICIAN: Reports: Acetaminophen Flank Pain Score (Numeric/FACES): 9 - Related Data Allergies Allergy/AdvReac Type Severity Reaction Status Date / Time meperidine [From Demerol] Allergy Other Verified 11/12/19 22:48 Home Meds: Home Meds Aspirin 325 mg PO DAILY 06/03/16 [History] Cholecalciferol (Vitamin D3) [Vitamin D3] 2,000 unit PO DAILY 06/03/16 [History] Magnesium 500 mg PO DAILY 06/03/16 [History] Ubidecarenone [Co Q-10] 50 mg PO DAILY 06/03/16 [History] atorvaSTATin Calcium [Atorvastatin Calcium] 20 mg PO DAILY 06/03/16 [History] atenoloL [Atenolol] 25 mg PO DAILY #30 tab 11/29/17 [Rx] Past Medical History HEENT History: Reports: Impaired Vision Cardiovascular History: Reports: High Cholesterol, Hypertension, Other (See Below) Other Cardiovascular History: VENOUS INSUFFICIENCY, BLOOD CLOTTING DISORDER Respiratory History: Reports: None Gastrointestinal History: Reports: None Genitourinary History: Reports: None, Other (See Below) Other Genitourinary History: NOCTURIA, HOT FLASHES HOME CARE GIVER History: Reports: None Musculoskeletal History: Reports: Arthritis, Gout, Osteoporosis, Other (See Below) Other Musculoskeletal History: CARPAL TUNNEL SYNDROME, CERVICAL DISC DISEASE Neurological History: Reports: None Psychiatric History: Reports: None Endocrine/Metabolic History: Reports: Vitamin D Deficiency, Other (See Below) Other Endocrine/Metabolic History: THYROID NODULE Hematologic History: Reports: None Oncologic (Cancer) History: Reports: None Dermatologic History: Reports: None, Other (See Below) Other Dermatologic History: ACTINIC KERATOSIS - Infectious Disease History Infectious Disease History: Reports: None - Past Surgical History Head Surgeries/Procedures: Reports: None HEENT Surgical History: Reports: Cataract Surgery, Tonsillectomy Cardiovascular Surgical History: Reports: None GI Surgical History: Reports: Appendectomy Female Surgical History: Reports: Breast Reduction, Hysterectomy, Oophorectomy, Tubal Ligation Social & Family History - Family History Family Medical History: Noncontributory - Caffeine Use Caffeine Use: Reports: Coffee ED ROS GENERAL - Review of Systems Review Of Systems: See Below Constitutional: Reports: Fever (yesterday), Chills HEENT: Reports: No Symptoms. Denies: Rhinitis, Sinus Problem, Throat Pain, Vertigo, Vision Change Respiratory: Reports: No Symptoms. Denies: Shortness of Breath, Wheezing, Pleuritic Chest Pain, Cough, Sputum Cardiovascular: Reports: No Symptoms. Denies: Chest Pain, Dyspnea on Exertion, Edema, Lightheadedness, Palpitations, Syncope Endocrine: Reports: No Symptoms GI/Abdominal: Reports: No Symptoms. Denies: Abdominal Pain, Constipation, Diarrhea, Nausea, Vomiting : Reports: Flank Pain (right). Denies: Discharge, Dysuria, Frequency, Hematuria, Incontinence, Pain, Urgency, Urinary Retention Musculoskeletal: Reports: Back Pain (Right lower). Denies: Neck Pain, Shoulder Pain, Arm Pain, Leg Pain, Foot Pain, Joint Pain, Muscle Stiffness Skin: Reports: No Symptoms Neurological: Reports: No Symptoms. Denies: Confusion, Dizziness, Headache, Numbness, Seizure, Syncope, Tingling, Tremors, Trouble Speaking, Difficulty Walking, Weakness, Change in Speech, Gait Disturbance Psychiatric: Reports: No Symptoms Hematologic/Lymphatic: Reports: No Symptoms Immunologic: Reports: No Symptoms ED EXAM, GI/ABD - Physical Exam Exam: See Below Exam Limited By: No Limitations General Appearance: Alert, WD/WN, Anxious, Mild Distress (in pain), Obese Eyes: Bilateral: Normal Appearance Ears: Normal External Exam, Normal Canal, Hearing Grossly Normal, Normal TMs Nose: Normal Inspection, Normal Mucosa, No Blood Throat/Mouth: Normal Inspection, Normal Lips, Normal Teeth, Normal Gums, Normal Oropharynx, Normal Voice, No Airway Compromise Head: Atraumatic, Normocephalic Neck: Normal Inspection, Supple, Non-Tender, Full Range of Motion Respiratory/Chest: No Respiratory Distress, Lungs Clear, Normal Breath Sounds, No Accessory Muscle Use, Chest Non-Tender. No: Respiratory Distress, Decreased Breath Sounds, Crackles, Rales, Rhonchi, Wheezing, Stridor, Accessory Muscle Use , Splinting Cardiovascular: Normal Peripheral Pulses, Regular Rate, Rhythm, No Edema, No Gallop, No JVD, No Murmur, No Rub GI/Abdominal Exam: Soft, Non-Tender, No Organomegaly Back Exam: Normal Inspection, Full Range of Motion, CVA Tenderness (R), Decreased Range of Motion (due to pain right lower back), Paraspinal Tenderness (Right lower with palpation and twisting of the trunk. Painful to move from sitting position to laying on stretcher in the ER. ), Other (Pain is easily manipulated in this patient by palpation in right flank, tapping right flank, and movement to lay back or twist of the trunk.). No: CVA Tenderness (L), Vertebral Tenderness Extremities: Normal Inspection, Normal Range of Motion, Non-Tender, No Pedal Edema, Normal Capillary Refill Neurological: Alert, Oriented, Normal Cognition Psychiatric: Anxious, Tearful Skin Exam: Warm, Dry, Intact, Normal Color, No Rash Lymphatic: No Adenopathy Course - Vital Signs Last Recorded V/S: Last Vital Signs Temp 97.9 F 11/12/19 22:21 Pulse 82 11/12/19 22:21 Resp 20 11/12/19 22:21 BP 139/57 L 11/12/19 22:21 Pulse Ox 99 11/12/19 22:21 - Orders/Labs/Meds Orders: Active Orders 24 hr Category Date Time Status Abdomen Pelvis wo Cont [CT] Stat Exams 11/12/19 22:59 Taken CULTURE URINE [RM] Stat Lab 11/12/19 22:30 Received Labs: Laboratory Tests 11/12/19 11/12/19 11/12/19 Range/Units 22:39 22:39 22:39 WBC 11.1 H (5.0-10.0) 10^3/uL RBC 4.55 (4.00-5.50) 10^6/uL Hgb 14.3 (12.0-16.0) g/dL Hct 41.9 (37.0-47.0) % MCV 92.1 (82.0-94.0) fL MCH 31.4 (27.0-32.0) pg MCHC 34.1 (33.0-38.0) g/dL RDW Coeff of Ashley 12.6 (11.0-15.0) % Plt Count 194 (150-400) 10^3/uL Neut % (Auto) 77.0 (35-85) % Lymph % (Auto) 15.2 (10-55) % [place] % (Auto) 7.0 (0-16) % Eos % (Auto) 0.5 (0-5) % Baso % (Auto) 0.3 (0-3) % Neut # (Auto) 8.55 H (1.80-7.00) 10^3/uL Lymph # (Auto) 1.69 (1.00-4.80) 10^3/uL [place] # (Auto) 0.78 (0.00-0.80) 10^3/uL Eos # (Auto) 0.06 (0.00-0.45) 10^3/uL Baso # (Auto) 0.03 10^3/uL Sodium 139 (136-145) mEq/L Potassium 3.6 (3.5-5.0) mEq/L Chloride 103 (98-106) mEq/L Carbon Dioxide 24 (21-32) mmol/L BUN 22 H (7-18) mg/dL Creatinine 1.1 H (0.6-1.0) mg/dL Est Cr Clr Drug Dosing 44.55 mL/min Estimated GFR (MDRD) 49 L (>=60) mL/min Glucose 179 H D (75-99) mg/dL Calcium 9.0 (8.4-10.1) mg/dL Total Bilirubin 0.4 (0.0-1.0) mg/dL AST 14 L (15-37) U/L ALT 22 (12-78) U/L Alkaline Phosphatase 101 (46-116) U/L Total Protein 7.2 (6.4-8.2) g/dL Albumin 3.6 (3.4-5.0) g/dL Amylase 73 (25-115) U/L Lipase 177 (73-393) U/L Urine Color Yellow (YELLOW) Urine Appearance Slightly cloudy (CLEAR) Urine pH 6.0 (4.5-8.0) Ur Specific [place] 1.025 H (1.003-1.020) Urine Protein Negative (NEGATIVE) mg/dL Urine Glucose (UA) 250 H (NEGATIVE) mg/dL Urine Ketones Trace H (NEGATIVE) mg/dL Urine Occult Blood Negative (NEGATIVE) Urine Nitrite Negative (NEGATIVE) Urine Bilirubin Negative (NEGATIVE) Urine Urobilinogen 0.2 (0.2-1.0) EU/dL Ur Leukocyte Esterase Negative (NEGATIVE) Urine RBC 0-5 (0-5) /HPF Urine WBC 0-5 (0-5) /HPF Ur Epithelial Cells Few H (NOT SEEN) /HPF Urine Bacteria Few H (NOT SEEN) /HPF Urine Mucus Few H (NOT SEEN) /HPF Meds: Medications Discontinued Medications Generic Name Dose Route Start Last Admin Trade Name Freq PRN Reason Stop Dose Admin Sodium Chloride 1,000 mls @ 1,000 mls/hr 11/12/19 23:00 11/12/19 23:06 Normal Saline IV 11/12/19 23:59 1,000 mls/hr .BOLUS ONE Administration Morphine Sulfate 4 mg 11/12/19 22:27 11/12/19 22:34 Morphine IVPUSH 11/12/19 22:28 4 mg ONETIME ONE Administration Ondansetron HCl 4 mg 11/12/19 22:27 11/12/19 22:41 Zofran IVPUSH 11/12/19 22:28 4 mg NOW STA Administration - Radiology Interpretation Free Text/Narrative:: CT Abd/Pelvis without: No acute abnormality. CT Results Date: 11/13/19 CT Results Time: 00:20 - Re-Assessments/Exams Free Text/Narrative Re-Assessment/Exam: 11/12/19 23:11 Patient report the pain medication did help a lot. But, still has pain. 11/13/19 00:30 Patient pain level is now a 1/10. She does appear to be more comfortable, but sitting over the stretcher. Discussed with patient and her labs with elevated wbc, renal insufficiency, and her glucose elevation and glucose in urine. Her urine does not show wbc or leukocytes, but does show some bacteria. At this time I will give abx. due to bacteria and flank pain and reported fever. I did order urine cx. She is currently afebrile. Will admit for renal insufficiency, possible UTI, hydrate, and manage her pain in right lower back/ flank. Will allow PCP to evaluate in hospital tomorrow. Will repeat labs in morning to ensure no increase in wbc, renal insuff., and glucose. Patient and agree with this plan and think its a good idea. Departure - Departure Time of Disposition: 00:33 Disposition: Refer to Observation Condition: Fair Clinical Impression: Renal insufficiency, Hyperglycemia, UTI, Urinary tract infectious disease Back pain Qualifiers: Back pain location: low back pain Chronicity: acute Back pain laterality: right Sciatica presence: without sciatica Qualified Code(s): M54.5 - Low back pain - Discharge Information *PRESCRIPTION DRUG MONITORING PROGRAM REVIEWED*: Not Applicable *COPY OF PRESCRIPTION DRUG MONITORING REPORT IN PATIENT SHIRIN: Not Applicable Forms: ED Department Discharge Sepsis Event Note - Evaluation Sepsis Screening Result: No Definite Risk - Focused Exam Vital Signs: Vital Signs Temp Pulse Resp BP Pulse Ox 11/12/19 22:21 97.9 F 82 20 139/57 L 99 Date Exam was Performed: 11/13/19 Time Exam was Performed: 00:39 - My Orders Last 24 Hours: My Active Orders 11/12/19 22:30 CULTURE URINE [RM] Stat 11/12/19 22:59 Abdomen Pelvis wo Cont [CT] Stat - Assessment/Plan Last 24 Hours: My Active Orders 11/12/19 22:30 CULTURE URINE [RM] Stat 11/12/19 22:59 Abdomen Pelvis wo Cont [CT] Stat Plan: PLEASE SEE RN NOTE FOR PFSH. PLEASE USE ER H&P ADMIT H&P.
[2019-11-12] MEDS ORDERED: Sodium Chloride 0.9% 1,000 ML IV ONE (23:00)
[2019-11-13] MEDS ORDERED: Morphine 2 MG/ML Syringe IVPUSH PRN (01:05)
[2019-11-13] MEDS ORDERED: Sodium Chloride 0.9% 1,000 ML IV SCH (01:05)
[2019-11-13] MEDS ORDERED: Ondansetron 4 MG/2 ML SDV IV PRN (01:05)
[2019-11-13] MEDS ORDERED: Sodium Chloride 0.9% 500 ML IV SCH ×4 (01:15→02:45)
[2019-11-13] MEDS: Acetaminophen/HYDROcodone 325-5 MG Tab PO PRN ×3 (01:30→19:40)
[2019-11-13] MEDS ORDERED: cefTRIAXone 1 GM Vial IVPUSH ONE (01:30)
[2019-11-13] MEDS ORDERED: Enoxaparin 40 MG/0.4 ML Syringe SUBCUT ONE (01:30)
[2019-11-13] MEDS: Sodium Chloride 0.9% 500 ML ONE ×2 (01:32→01:41)
[2019-11-13 07:39] LABS: CHLORIDE,CL 107 mEq/L (98-106); SODIUM,NA 138 mEq/L (136-145)
[2019-11-13] MEDS ORDERED: ATORVASTATIN 20 MG PO SCH (08:00)
[2019-11-13] MEDS ORDERED: Atenolol 25 MG Tab PO SCH (08:00)
[2019-11-13] MEDS ORDERED: atorvaSTATin 20 MG Tab PO SCH (08:00)
[2019-11-13] MEDS ORDERED: Aspirin 325 MG Tab.EC PO SCH (08:00)
--- NOTE | 2019-11-13 11:46 | PCM.PN ---
- General Info Date of Service: 11/13/19 Admission Dx/Problem (Free Text): Renal Insufficiency UTI Elevated glucose Functional Status: Reports: Pain Controlled, Tolerating Diet, Ambulating - Review of Systems General: Reports: Fever (low grade this am), Malaise. Denies: Weakness, Fatigue HEENT: Reports: No Symptoms Pulmonary: Reports: Cough. Denies: Shortness of Breath Cardiovascular: Denies: Chest Pain Gastrointestinal: Denies: Abdominal Pain, Nausea, Vomiting Genitourinary: Reports: Flank Pain. Denies: Dysuria, Frequency Musculoskeletal: Reports: No Symptoms Skin: Reports: No Symptoms Neurological: Reports: No Symptoms - Patient Data Vitals - Most Recent: Last Vital Signs Temp 99.3 F 11/13/19 11:17 Pulse 72 11/13/19 11:17 Resp 18 11/13/19 11:17 BP 110/51 L 11/13/19 11:17 Pulse Ox 96 11/13/19 11:17 Weight - Most Recent: 181 lb 11.2 oz Lab Results Last 24 Hours: Laboratory Results - last 24 hr 11/12/19 11/12/19 11/12/19 Range/Units 22:39 22:39 22:39 WBC 11.1 H (5.0-10.0) 10^3/uL RBC 4.55 (4.00-5.50) 10^6/uL Hgb 14.3 (12.0-16.0) g/dL Hct 41.9 (37.0-47.0) % MCV 92.1 (82.0-94.0) fL MCH 31.4 (27.0-32.0) pg MCHC 34.1 (33.0-38.0) g/dL RDW Coeff of Ashley 12.6 (11.0-15.0) % Plt Count 194 (150-400) 10^3/uL Neut % (Auto) 77.0 (35-85) % Lymph % (Auto) 15.2 (10-55) % Coffee % (Auto) 7.0 (0-16) % Eos % (Auto) 0.5 (0-5) % Baso % (Auto) 0.3 (0-3) % Neut # (Auto) 8.55 H (1.80-7.00) 10^3/uL Lymph # (Auto) 1.69 (1.00-4.80) 10^3/uL Coffee # (Auto) 0.78 (0.00-0.80) 10^3/uL Eos # (Auto) 0.06 (0.00-0.45) 10^3/uL Baso # (Auto) 0.03 10^3/uL Sodium 139 (136-145) mEq/L Potassium 3.6 (3.5-5.0) mEq/L Chloride 103 (98-106) mEq/L Carbon Dioxide 24 (21-32) mmol/L BUN 22 H (7-18) mg/dL Creatinine 1.1 H (0.6-1.0) mg/dL Est Cr Clr Drug Dosing 44.55 mL/min Estimated GFR (MDRD) 49 L (>=60) mL/min Glucose 179 H D (75-99) mg/dL Lactic Acid (0.4-2.0) mmol/L Calcium 9.0 (8.4-10.1) mg/dL Magnesium (1.8-2.4) mg/dL Total Bilirubin 0.4 (0.0-1.0) mg/dL AST 14 L (15-37) U/L ALT 22 (12-78) U/L Alkaline Phosphatase 101 (46-116) U/L Total Protein 7.2 (6.4-8.2) g/dL Albumin 3.6 (3.4-5.0) g/dL Amylase 73 (25-115) U/L Lipase 177 (73-393) U/L Urine Color Yellow (YELLOW) Urine Appearance Slightly cloudy (CLEAR) Urine pH 6.0 (4.5-8.0) Ur Specific [place] 1.025 H (1.003-1.020) Urine Protein Negative (NEGATIVE) mg/dL Urine Glucose (UA) 250 H (NEGATIVE) mg/dL Urine Ketones Trace H (NEGATIVE) mg/dL Urine Occult Blood Negative (NEGATIVE) Urine Nitrite Negative (NEGATIVE) Urine Bilirubin Negative (NEGATIVE) Urine Urobilinogen 0.2 (0.2-1.0) EU/dL Ur Leukocyte Esterase Negative (NEGATIVE) Urine RBC 0-5 (0-5) /HPF Urine WBC 0-5 (0-5) /HPF Ur Epithelial Cells Few H (NOT SEEN) /HPF Urine Bacteria Few H (NOT SEEN) /HPF Urine Mucus Few H (NOT SEEN) /HPF 11/13/19 11/13/19 11/13/19 Range/Units 07:00 07:00 07:05 WBC 7.9 (5.0-10.0) 10^3/uL RBC 3.96 L (4.00-5.50) 10^6/uL Hgb 12.5 (12.0-16.0) g/dL Hct 37.5 (37.0-47.0) % MCV 94.7 H (82.0-94.0) fL MCH 31.6 (27.0-32.0) pg MCHC 33.3 (33.0-38.0) g/dL RDW Coeff of Ashley 12.6 (11.0-15.0) % Plt Count 161 (150-400) 10^3/uL Neut % (Auto) 60.2 (35-85) % Lymph % (Auto) 30.3 (10-55) % Coffee % (Auto) 8.3 (0-16) % Eos % (Auto) 0.8 (0-5) % Baso % (Auto) 0.4 (0-3) % Neut # (Auto) 4.77 (1.80-7.00) 10^3/uL Lymph # (Auto) 2.40 (1.00-4.80) 10^3/uL [place] # (Auto) 0.66 (0.00-0.80) 10^3/uL Eos # (Auto) 0.06 (0.00-0.45) 10^3/uL Baso # (Auto) 0.03 10^3/uL Sodium 138 (136-145) mEq/L Potassium 3.6 (3.5-5.0) mEq/L Chloride 107 H (98-106) mEq/L Carbon Dioxide 26 (21-32) mmol/L BUN 19 H (7-18) mg/dL Creatinine 0.9 (0.6-1.0) mg/dL Est Cr Clr Drug Dosing 54.45 mL/min Estimated GFR (MDRD) > 60 (>=60) mL/min Glucose 107 H D (75-99) mg/dL Lactic Acid 0.6 (0.4-2.0) mmol/L Calcium 8.2 L (8.4-10.1) mg/dL Magnesium 2.0 (1.8-2.4) mg/dL Total Bilirubin (0.0-1.0) mg/dL AST (15-37) U/L ALT (12-78) U/L Alkaline Phosphatase (46-116) U/L Total Protein (6.4-8.2) g/dL Albumin (3.4-5.0) g/dL Amylase (25-115) U/L Lipase (73-393) U/L Urine Color (YELLOW) Urine Appearance (CLEAR) Urine pH (4.5-8.0) Ur Specific Valentine (1.003-1.020) Urine Protein (NEGATIVE) mg/dL Urine Glucose (UA) (NEGATIVE) mg/dL Urine Ketones (NEGATIVE) mg/dL Urine Occult Blood (NEGATIVE) Urine Nitrite (NEGATIVE) Urine Bilirubin (NEGATIVE) Urine Urobilinogen (0.2-1.0) EU/dL Ur Leukocyte Esterase (NEGATIVE) Urine RBC (0-5) /HPF Urine WBC (0-5) /HPF Ur Epithelial Cells (NOT SEEN) /HPF Urine Bacteria (NOT SEEN) /HPF Urine Mucus (NOT SEEN) /HPF Med Orders - Current: Current Medications Hydrocodone Bitart/Acetaminophen ([place] 325-5 Mg) 1 tab PO Q4H PRN PRN Reason: Pain (moderate 4-6) Last Admin: 11/13/19 01:30 Dose: 1 tab Aspirin (Ecotrin) 325 mg PO DAILY@1999 [facility] Atenolol (Tenormin) 25 mg PO DAILY@1999 [facility] Atorvastatin Calcium (Lipitor) 20 mg PO DAILY [facility] Ceftriaxone Sodium (Rocephin) 1 gm IVPUSH Q24H [facility] Cholecalciferol (Vitamin D3) 50 mcg PO DAILY [facility] Enoxaparin Sodium (Lovenox) 40 mg SUBCUT Q24H [facility] Sodium Chloride (Normal Saline) 500 mls @ 75 mls/hr IV ASDIRECTED [facility] Last Admin: 11/13/19 01:41 Dose: 75 mls/hr Ibuprofen (Motrin) 600 mg PO Q6H PRN PRN Reason: Pain (mild 1-3) Magnesium Oxide (Magnesium Oxide) 500 mg PO DAILY [facility] Morphine Sulfate (Morphine) 2 mg IVPUSH Q2H PRN PRN Reason: Pain (severe 7-10) Non-Formulary Medication (Ubidecarenone [Co Q-10]) 50 mg PO DAILY [facility] Ondansetron HCl (Zofran) 4 mg IV Q6H PRN PRN Reason: Nausea/Vomiting Discontinued Medications Aspirin (Ecotrin) 325 mg PO DAILY [facility] Atenolol (Tenormin) 25 mg PO DAILY [facility] Atorvastatin Calcium (Lipitor) 20 mg PO DAILY [facility] Ceftriaxone Sodium (Rocephin) 1 gm IVPUSH ONETIME ONE Stop: 11/13/19 01:31 Last Admin: 11/13/19 01:32 Dose: 1 gm Enoxaparin Sodium (Lovenox) 40 mg SUBCUT ONETIME ONE Stop: 11/13/19 01:31 Last Admin: 11/13/19 01:32 Dose: 40 mg Sodium Chloride (Normal Saline) 1,000 mls @ 1,000 mls/hr IV .BOLUS ONE Stop: 11/12/19 23:59 Last Admin: 11/12/19 23:06 Dose: 1,000 mls/hr Sodium Chloride (Normal Saline) 1,000 mls @ 125 mls/hr IV ASDIRECTED [facility] Stop: 11/13/19 09:04 Sodium Chloride (Normal Saline) 500 mls @ 75 mls/hr IV ASDIRECTED [facility] Sodium Chloride (Normal Saline) Confirm Administered Dose 500 mls @ as directed .ROUTE .STK-MED ONE Stop: 11/13/19 01:36 Last Admin: 11/13/19 01:41 Dose: Not Given Sodium Chloride (Normal Saline) 500 mls @ 75 mls/hr IV ASDIRECTED [facility] Sodium Chloride (Normal Saline) 500 mls @ 75 mls/hr IV ASDIRECTED [facility] Morphine Sulfate (Morphine) 4 mg IVPUSH ONETIME ONE Stop: 11/12/19 22:28 Last Admin: 11/12/19 22:34 Dose: 4 mg Ondansetron HCl (Zofran) 4 mg IVPUSH NOW STA Stop: 11/12/19 22:28 Last Admin: 11/12/19 22:41 Dose: 4 mg - Exam General: Alert, Oriented HEENT: Mucous Membr. Moist/[place] Neck: Supple Lungs: Clear to Auscultation, Normal Respiratory Effort Cardiovascular: Regular Rate, Regular Rhythm GI/Abdominal Exam: Normal Bowel Sounds, Soft, Non-Tender Back Exam: CVA Tenderness (R) Extremities: Normal Inspection, No Pedal Edema Skin: Warm, Dry Neurological: No New Focal Deficit Sepsis Event Note - Evaluation Sepsis Screening Result: No Definite Risk - Focused Exam Vital Signs: Vital Signs Temp Pulse Resp BP BP Pulse Ox 11/13/19 11:17 99.3 F 72 18 110/51 L 96 11/13/19 08:00 98.4 F 56 L 18 100/52 L 98 11/13/19 00:59 99.6 F 68 18 113/60 96 Date Exam was Performed: 11/13/19 Time Exam was Performed: 11:40 - Problem List & Annotations (1) Back pain SNOMED Code(s): 371958100 Code(s): M54.9 - DORSALGIA, UNSPECIFIED Status: Acute Priority: High Current Visit: Yes Qualifiers: Back pain location: low back pain Chronicity: acute Back pain laterality : right Sciatica presence: without sciatica Qualified Code(s): M54.5 - Low back pain (2) Hyperglycemia SNOMED Code(s): 64127434 Code(s): R73.9 - HYPERGLYCEMIA, UNSPECIFIED Status: Acute Priority: Medium Current Visit: Yes (3) Renal insufficiency SNOMED Code(s): 804331548, 838149765 Code(s): N28.9 - DISORDER OF KIDNEY AND URETER, UNSPECIFIED Status: Acute Priority: High Current Visit: Yes (4) UTI, Urinary tract infectious disease SNOMED Code(s): 99834188 Code(s): N39.0 - URINARY TRACT INFECTION, SITE NOT SPECIFIED Status: Acute Priority: High Current Visit: Yes - Problem List Review Problem List Initiated/Reviewed/Updated: Yes - Assessment Assessment:: Renal Insufficiency UTI Elevated blood sugar Back Pain - Plan Plan:: Patient is feeling better this am, states pain down from a 10/10 to a 3. Does still have tenderness to the right flank area. No abdominal pain. No nausea this am. Able to tolerate her breakfast. Low grade temp this am. WBC is now normal. Creatinine 0.9. Blood sugar 107. Will stop IV fluids as patient is drinking well. Continue IV Rocephin. Await culture report.
[2019-11-13] MEDS: Cholecalciferol (Vitamin D3) 25 MCG Tab PO SCH (13:39)
[2019-11-13] MEDS: Ibuprofen 200 MG Tab PO PRN (13:39)
[2019-11-13] MEDS ORDERED: Iopamidol 755 Mg/ML 100 ML Bottle IVPUSH ONE (14:50)
[2019-11-13] MEDS: Apixaban 5 MG Tab PO SCH (16:38)
[2019-11-13] MEDS: Aspirin 81 MG Tab.EC PO SCH (19:40)
[2019-11-13] MEDS ORDERED: UBIDECARENONE 50 MG PO SCH (20:00)
[2019-11-13] MEDS ORDERED: ASPIRIN 325 MG PO SCH (20:00)
[2019-11-13] MEDS ORDERED: ATORVASTATIN 40 MG PO SCH (20:00)
[2019-11-13] MEDS ORDERED: ATENOLOL 25 MG PO SCH (20:00)
[2019-11-13] MEDS ORDERED: cefTRIAXone 1 GM Vial IVPUSH SCH (21:00)
[2019-11-13] MEDS ORDERED: Enoxaparin 40 MG/0.4 ML Syringe SUBCUT SCH (21:00)
[2019-11-14] MEDS: Apixaban 5 MG Tab PO SCH ×3 (06:06→19:44)
[2019-11-14] MEDS: Acetaminophen/HYDROcodone 325-5 MG Tab PO PRN (06:11)
[2019-11-14 07:50] LABS: CHLORIDE,CL 102 mEq/L (98-106); SODIUM,NA 139 mEq/L (136-145)
[2019-11-14] MEDS: Cholecalciferol (Vitamin D3) 25 MCG Tab PO SCH (09:59)
[2019-11-14] MEDS: Ibuprofen 200 MG Tab PO PRN (12:26)
--- NOTE | 2019-11-14 16:06 | PCM.PN ---
- General Info Date of Service: 11/14/19 Admission Dx/Problem (Free Text): Pulmonary Emboli Functional Status: Reports: Pain Controlled - Review of Systems General: Reports: Fever, Malaise. Denies: Weakness, Fatigue HEENT: Reports: No Symptoms Pulmonary: Reports: Pleuritic Chest Pain. Denies: Shortness of Breath, Cough Cardiovascular: Denies: Chest Pain, Edema, Lightheadedness Gastrointestinal: Denies: Abdominal Pain, Nausea, Vomiting Genitourinary: Reports: No Symptoms Musculoskeletal: Reports: No Symptoms Skin: Reports: No Symptoms Neurological: Reports: No Symptoms - Patient Data Vitals - Most Recent: Last Vital Signs Temp 97.6 F 11/14/19 15:52 Pulse 68 11/14/19 15:52 Resp 16 11/14/19 15:52 BP 105/51 L 11/14/19 15:52 Pulse Ox 96 11/14/19 15:52 Weight - Most Recent: 181 lb 11.2 oz Lab Results Last 24 Hours: Laboratory Results - last 24 hr 11/14/19 11/14/19 Range/Units 01:05 07:30 WBC 7.9 (5.0-10.0) 10^3/uL RBC 4.02 (4.00-5.50) 10^6/uL Hgb 12.5 (12.0-16.0) g/dL Hct 38.1 (37.0-47.0) % MCV 94.8 H (82.0-94.0) fL MCH 31.1 (27.0-32.0) pg MCHC 32.8 L (33.0-38.0) g/dL RDW Coeff of Ashley 12.6 (11.0-15.0) % Plt Count 172 (150-400) 10^3/uL Neut % (Auto) 77.1 (35-85) % Lymph % (Auto) 16.0 (10-55) % [place] % (Auto) 5.7 (0-16) % Eos % (Auto) 0.9 (0-5) % Baso % (Auto) 0.3 (0-3) % Neut # (Auto) 6.12 (1.80-7.00) 10^3/uL Lymph # (Auto) 1.27 (1.00-4.80) 10^3/uL [place] # (Auto) 0.45 (0.00-0.80) 10^3/uL Eos # (Auto) 0.07 (0.00-0.45) 10^3/uL Baso # (Auto) 0.02 10^3/uL Sodium 139 (136-145) mEq/L Potassium 4.0 (3.5-5.0) mEq/L Chloride 102 (98-106) mEq/L Carbon Dioxide 28 (21-32) mmol/L BUN 15 (7-18) mg/dL Creatinine 0.9 (0.6-1.0) mg/dL Est Cr Clr Drug Dosing 54.45 mL/min Estimated GFR (MDRD) > 60 (>=60) mL/min Glucose 111 H (75-99) mg/dL Calcium 8.5 (8.4-10.1) mg/dL Federico Results Last 24 Hours: Microbiology 11/12/19 22:30 Urine Culture - Final Urine, Clean Catch NO GROWTH AFTER 2 DAYS 11/13/19 07:05 Aerobic Blood Culture - Preliminary Blood - Venous - Lab Draw NO GROWTH AFTER 1 DAY Anaerobic Blood Culture - Preliminary NO GROWTH AFTER 1 DAY 11/13/19 07:00 Aerobic Blood Culture - Preliminary Blood - Venous NO GROWTH AFTER 1 DAY Anaerobic Blood Culture - Preliminary NO GROWTH AFTER 1 DAY Med Orders - Current: Current Medications Hydrocodone Bitart/Acetaminophen ([place] 325-5 Mg) 1 tab PO Q4H PRN PRN Reason: Pain (moderate 4-6) Last Admin: 11/14/19 06:11 Dose: 1 tab Apixaban (Eliquis) 10 mg PO BID [facility] Stop: 11/20/19 16:41 Last Admin: 11/14/19 07:16 Dose: Not Given Aspirin (Halfprin) 81 mg PO BEDTIME [facility] Last Admin: 11/13/19 19:40 Dose: 81 mg Atenolol (Tenormin) 25 mg PO BEDTIME [facility] Last Admin: 11/13/19 19:39 Dose: 25 mg Ceftriaxone Sodium (Rocephin) 1 gm IVPUSH Q24H [facility] Last Admin: 11/13/19 20:23 Dose: 1 gm Cholecalciferol (Vitamin D3) 50 mcg PO DAILY [facility] Last Admin: 11/14/19 09:59 Dose: 50 mcg Sodium Chloride (Normal Saline) 500 mls @ 75 mls/hr IV ASDIRECTED [facility] Last Admin: 11/13/19 01:41 Dose: 75 mls/hr Ibuprofen (Motrin) 600 mg PO Q6H PRN PRN Reason: Pain (mild 1-3) Last Admin: 11/14/19 12:26 Dose: 600 mg Magnesium Oxide (Magnesium Oxide) 500 mg PO DAILY [facility] Last Admin: 11/14/19 09:59 Dose: 500 mg Morphine Sulfate (Morphine) 2 mg IVPUSH Q2H PRN PRN Reason: Pain (severe 7-10) Last Admin: 11/13/19 13:14 Dose: 2 mg Ubidecarenone [Co Q- (10] 50 Mg) 50 mg PO DAILY [facility] Atorvastatin 40 Mg (Tab Own Med) 0 each PO BEDTIME [facility] Last Admin: 11/13/19 19:38 Dose: 0.5 each Ondansetron HCl (Zofran) 4 mg IV Q6H PRN PRN Reason: Nausea/Vomiting Discontinued Medications Aspirin (Ecotrin) 325 mg PO DAILY [facility] Aspirin (Ecotrin) 325 mg PO DAILY@1999 [facility] Atenolol (Tenormin) 25 mg PO DAILY [facility] Atorvastatin Calcium (Lipitor) 20 mg PO DAILY [facility] Atorvastatin Calcium (Lipitor) 20 mg PO DAILY [facility] Last Admin: 11/13/19 12:27 Dose: Not Given Ceftriaxone Sodium (Rocephin) 1 gm IVPUSH ONETIME ONE Stop: 11/13/19 01:31 Last Admin: 11/13/19 01:32 Dose: 1 gm Enoxaparin Sodium (Lovenox) 40 mg SUBCUT ONETIME ONE Stop: 11/13/19 01:31 Last Admin: 11/13/19 01:32 Dose: 40 mg Enoxaparin Sodium (Lovenox) 40 mg SUBCUT Q24H [facility] Sodium Chloride (Normal Saline) 1,000 mls @ 1,000 mls/hr IV .BOLUS ONE Stop: 11/12/19 23:59 Last Admin: 11/12/19 23:06 Dose: 1,000 mls/hr Sodium Chloride (Normal Saline) 1,000 mls @ 125 mls/hr IV ASDIRECTED [facility] Stop: 11/13/19 09:04 Sodium Chloride (Normal Saline) 500 mls @ 75 mls/hr IV ASDIRECTED [facility] Sodium Chloride (Normal Saline) Confirm Administered Dose 500 mls @ as directed .ROUTE .STK-MED ONE Stop: 11/13/19 01:36 Last Admin: 11/13/19 01:41 Dose: Not Given Sodium Chloride (Normal Saline) 500 mls @ 75 mls/hr IV ASDIRECTED [facility] Sodium Chloride (Normal Saline) 500 mls @ 75 mls/hr IV ASDIRECTED [facility] Iopamidol (Isovue-370 (76%)) 100 ml IVPUSH ONETIME ONE Stop: 11/13/19 14:51 Last Admin: 11/13/19 15:03 Dose: 100 ml Morphine Sulfate (Morphine) 4 mg IVPUSH ONETIME ONE Stop: 11/12/19 22:28 Last Admin: 11/12/19 22:34 Dose: 4 mg Ondansetron HCl (Zofran) 4 mg IVPUSH NOW STA Stop: 11/12/19 22:28 Last Admin: 11/12/19 22:41 Dose: 4 mg - Exam General: Alert, Oriented HEENT: Mucous Membr. Moist/[place] Neck: Supple Lungs: Normal Respiratory Effort, Crackles (RLL ) Cardiovascular: Regular Rate, Regular Rhythm GI/Abdominal Exam: Normal Bowel Sounds, Soft, Non-Tender Extremities: Normal Inspection, No Pedal Edema Skin: Warm, Dry Neurological: No New Focal Deficit Sepsis Event Note - Evaluation Sepsis Screening Result: No Definite Risk - Focused Exam Vital Signs: Vital Signs Temp Pulse Resp BP BP Pulse Ox 11/14/19 15:52 97.6 F 68 16 105/51 L 96 11/14/19 11:23 98.7 F 72 16 120/51 L 95 11/14/19 07:58 99.3 F 70 16 125/54 L 94 L 11/14/19 04:00 98.2 F 70 16 127/58 L 96 Date Exam was Performed: 11/14/19 Time Exam was Performed: 15:55 - Problem List & Annotations (1) Back pain SNOMED Code(s): 712789209 Code(s): M54.9 - DORSALGIA, UNSPECIFIED Status: Acute Priority: High Current Visit: Yes Qualifiers: Back pain location: low back pain Chronicity: acute Back pain laterality : right Sciatica presence: without sciatica Qualified Code(s): M54.5 - Low back pain (2) Hyperglycemia SNOMED Code(s): 42449602 Code(s): R73.9 - HYPERGLYCEMIA, UNSPECIFIED Status: Acute Priority: Medium Current Visit: Yes (3) Renal insufficiency SNOMED Code(s): 074052258, 722498152 Code(s): N28.9 - DISORDER OF KIDNEY AND URETER, UNSPECIFIED Status: Acute Priority: High Current Visit: Yes (4) UTI, Urinary tract infectious disease SNOMED Code(s): 18230337 Code(s): N39.0 - URINARY TRACT INFECTION, SITE NOT SPECIFIED Status: Acute Priority: High Current Visit: Yes - Problem List Review Problem List Initiated/Reviewed/Updated: Yes - My Orders Last 24 Hours: My Active Orders 11/13/19 16:40 Apixaban [Eliquis] 10 mg PO BID 11/13/19 20:00 Aspirin [Halfprin] 81 mg PO BEDTIME 11/14/19 09:30 Abdomen Ltd [US] Routine 11/14/19 15:54 Patient Status [ADT] Routine - Assessment Assessment:: Renal Insufficiency UTI Elevated blood sugar Back Pain - Plan Plan:: Patient is feeling better this am, states pain down from a 10/10 to a 3. Does still have tenderness to the right flank area. No abdominal pain. No nausea this am. Able to tolerate her breakfast. Low grade temp this am. WBC is now normal. Creatinine 0.9. Blood sugar 107. Will stop IV fluids as patient is drinking well. Continue IV Rocephin. Await culture report. 11-14-2019 Patient continues to have pleuritic pain. Had increased episode of pain after eating dinner yesterday, labs were done at that time as well as a chest xray. Chest xray does show atelectasis. D-Dimer was elevated. CTA of chest was done and found to have PE. Gallbladder ultrasound was ordered due to fever, postprandial pain. Negative results this am. Did discuss results with patient and and plan yesterday afternoon. Did opt to start Eliquis so first dose given. Oxygen sats are good today on room air. Is ambulating without shortness of breath. Pain is controlled with oral pain meds today. Will continue to offer pain control. Continue Eliquis. Transfer to acute. Possible discharge home tomorrow.
[2019-11-14] MEDS ORDERED: Atenolol 25 MG Tab PO SCH (16:11)
[2019-11-14] MEDS ORDERED: atorvaSTATin 20 MG Tab PO SCH (16:13)
[2019-11-14] MEDS: Aspirin 81 MG Tab.EC PO SCH (19:44)
[2019-11-15] MEDS: Cholecalciferol (Vitamin D3) 25 MCG Tab PO SCH (08:14)
[2019-11-15] MEDS: Apixaban 5 MG Tab PO SCH (08:14)
[2019-11-15 09:30] VITALS: BP 129/74; PULSE 72
--- NOTE | 2019-11-15 16:03 | PCM.DCSUM1 ---
Discharge Summary - Hospital Course Free Text/Narrative:: Samantha is a 69 year old female that presented to ER with complaints of constant right lower back pain. Had started having pain the night prior, could not lay down as caused more pain as well as worse with movement. Noted a fever x1. No headache, dizziness, nausea or vomiting, shortness of breath. Denies chest pain. No urinary complaints. No injury. Lab did show mild elevation of WBC at 11.1. Hemoglobin 14.3. Creatinine of 1.1. Glucose of 179. UA did show few bacteria. Admitted to observation and started on IV Rocephin. Diagnosis: Stroke: No Modified [place] Scale: No Symptoms at All Modified [place] Scale Score: 0 - Discharge Data Discharge Date: 11/15/19 Discharge Disposition: Home, Self-Care 01 Condition: Good - Referral to Home Health Primary Care Physician: Reji Tee NP - Discharge Diagnosis/Problem(s) (1) Back pain SNOMED Code(s): 353141863 ICD Code: M54.9 - DORSALGIA, UNSPECIFIED Status: Acute Priority: High Qualifiers: Back pain location: low back pain Chronicity: acute Back pain laterality : right Sciatica presence: without sciatica Qualified Code(s): M54.5 - Low back pain (2) Hyperglycemia SNOMED Code(s): 55975019 ICD Code: R73.9 - HYPERGLYCEMIA, UNSPECIFIED Status: Acute Priority: Medium (3) Renal insufficiency SNOMED Code(s): 058754341, 730831928 ICD Code: N28.9 - DISORDER OF KIDNEY AND URETER, UNSPECIFIED Status: Acute Priority: High (4) Pulmonary embolism SNOMED Code(s): 88714921 ICD Code: I26.99 - OTHER PULMONARY EMBOLISM WITHOUT ACUTE COR PULMONALE Status: Acute Priority: High Qualifiers: Pulmonary embolism type: single subsegmental (without acute cor pulmonale) Qualified Code(s): I26.93 - Single subsegmental pulmonary embolism without acute cor pulmonale - Patient Summary/Data Complications: none Hospital Course: Patient is doing well today. Pain in her right flank has much improved. Did develop significant pain after eating on day 1, felt nauseated and unable to lie down. Troponin and EKG done and were negative. D-Dimer done and was elevated at 1.27. CTA of chest done showed right pulmonary emboli. Started on Eliquis. Urine culture was negative so Rocephin was stopped. Pain initially controlled with morphine and norco, now has not taken any pain meds for the last 24 hours. Is ambulating well without shortness of breath. Oxygen sats are good. Did have gallbladder ultrasound due to postprandial pain, was negative. Will discharge home on Eliquis. Instructed that due to second occurrence, especially with this event not being precipitated by surgery this time, will need to be on Eliquis for minimum of one year and then have clotting work up. Follow up with Dr. bolanos in one week. - Patient Instructions Diet: Usual Diet as Tolerated Activity: As Tolerated - Discharge Plan *PRESCRIPTION DRUG MONITORING PROGRAM REVIEWED*: Not Applicable *COPY OF PRESCRIPTION DRUG MONITORING REPORT IN PATIENT SHIRIN: Not Applicable Prescriptions/Med Rec: Apixaban [Eliquis] 10 mg PO BID #70 tablet Home Medications: Home Meds Cholecalciferol (Vitamin D3) [Vitamin D3] 2,000 unit PO DAILY 06/03/16 [History] Magnesium 500 mg PO DAILY 06/03/16 [History] Ubidecarenone [Co Q-10] 50 mg PO DAILY 06/03/16 [History] atorvaSTATin Calcium [Atorvastatin Calcium] 20 mg PO DAILY 06/03/16 [History] atenoloL [Atenolol] 25 mg PO DAILY #30 tab 11/29/17 [Rx] Aspirin [Halfprin] 81 mg PO DAILY 11/13/19 [History] Apixaban [Eliquis] 10 mg PO BID #70 tablet 11/15/19 [Rx] Forms: ED Department Discharge Referrals: Bayron Bolanos MD [ED Physician] - (Follow up with Dr. Bolanos in one week) - Discharge Summary/Plan Comment DC Time >30 min.: No - General Info Date of Service: 11/15/19 Admission Dx/Problem (Free Text: Pulmonary Emboli Functional Status: Reports: Pain Controlled, Tolerating Diet, Ambulating - Review of Systems General: Reports: Fatigue, Malaise HEENT: Reports: No Symptoms Pulmonary: Reports: Pleuritic Chest Pain. Denies: Shortness of Breath, Cough Cardiovascular: Denies: Chest Pain, Edema, Lightheadedness Gastrointestinal: Denies: Abdominal Pain, Nausea, Vomiting Genitourinary: Reports: No Symptoms Musculoskeletal: Reports: No Symptoms Skin: Reports: No Symptoms Neurological: Reports: No Symptoms - Patient Data Vitals - Most Recent: Last Vital Signs Temp 99.3 F 11/15/19 08:00 Pulse 72 11/15/19 08:00 Resp 18 11/15/19 08:00 BP 129/74 11/15/19 08:00 Pulse Ox 95 11/15/19 08:00 Weight - Most Recent: 181 lb 11.2 oz ANAND Results - Last 24 hrs: Microbiology 11/13/19 07:05 Aerobic Blood Culture - Preliminary Blood - Venous - Lab Draw NO GROWTH AFTER 2 DAYS Anaerobic Blood Culture - Preliminary NO GROWTH AFTER 2 DAYS 11/13/19 07:00 Aerobic Blood Culture - Preliminary Blood - Venous NO GROWTH AFTER 2 DAYS Anaerobic Blood Culture - Preliminary NO GROWTH AFTER 2 DAYS Med Orders - Current: Current Medications Discontinued Medications Hydrocodone Bitart/Acetaminophen ([place] 325-5 Mg) 1 tab PO Q4H PRN PRN Reason: Pain (moderate 4-6) Last Admin: 11/14/19 06:11 Dose: 1 tab Apixaban (Eliquis) 10 mg PO BID [facility] Stop: 11/20/19 16:41 Last Admin: 11/15/19 08:14 Dose: 10 mg Aspirin (Ecotrin) 325 mg PO DAILY [facility] Aspirin (Ecotrin) 325 mg PO DAILY@1999 [facility] Aspirin (Halfprin) 81 mg PO BEDTIME [facility] Last Admin: 11/14/19 19:44 Dose: 81 mg Atenolol (Tenormin) 25 mg PO DAILY [facility] Atenolol (Tenormin) 25 mg PO BEDTIME [facility] Last Admin: 11/13/19 19:39 Dose: 25 mg Atenolol (Tenormin) 25 mg PO BEDTIME [facility] Last Admin: 11/14/19 19:45 Dose: 25 mg Atorvastatin Calcium (Lipitor) 20 mg PO DAILY [facility] Atorvastatin Calcium (Lipitor) 20 mg PO DAILY [facility] Last Admin: 11/13/19 12:27 Dose: Not Given Atorvastatin Calcium (Lipitor) 20 mg PO BEDTIME [facility] Last Admin: 11/14/19 19:44 Dose: 20 mg Ceftriaxone Sodium (Rocephin) 1 gm IVPUSH Q24H [facility] Last Admin: 11/13/19 20:23 Dose: 1 gm Ceftriaxone Sodium (Rocephin) 1 gm IVPUSH ONETIME ONE Stop: 11/13/19 01:31 Last Admin: 11/13/19 01:32 Dose: 1 gm Cholecalciferol (Vitamin D3) 50 mcg PO DAILY [facility] Last Admin: 11/15/19 08:14 Dose: 50 mcg Enoxaparin Sodium (Lovenox) 40 mg SUBCUT ONETIME ONE Stop: 11/13/19 01:31 Last Admin: 11/13/19 01:32 Dose: 40 mg Enoxaparin Sodium (Lovenox) 40 mg SUBCUT Q24H [facility] Sodium Chloride (Normal Saline) 1,000 mls @ 1,000 mls/hr IV .BOLUS ONE Stop: 11/12/19 23:59 Last Admin: 11/12/19 23:06 Dose: 1,000 mls/hr Sodium Chloride (Normal Saline) 1,000 mls @ 125 mls/hr IV ASDIRECTED [facility] Stop: 11/13/19 09:04 Sodium Chloride (Normal Saline) 500 mls @ 75 mls/hr IV ASDIRECTED [facility] Sodium Chloride (Normal Saline) Confirm Administered Dose 500 mls @ as directed .ROUTE .STK-MED ONE Stop: 11/13/19 01:36 Last Admin: 11/13/19 01:41 Dose: Not Given Sodium Chloride (Normal Saline) 500 mls @ 75 mls/hr IV ASDIRECTED [facility] Sodium Chloride (Normal Saline) 500 mls @ 75 mls/hr IV ASDIRECTED [facility] Sodium Chloride (Normal Saline) 500 mls @ 75 mls/hr IV ASDIRECTED [facility] Last Admin: 11/13/19 01:41 Dose: 75 mls/hr Ibuprofen (Motrin) 600 mg PO Q6H PRN PRN Reason: Pain (mild 1-3) Last Admin: 11/14/19 12:26 Dose: 600 mg Iopamidol (Isovue-370 (76%)) 100 ml IVPUSH ONETIME ONE Stop: 11/13/19 14:51 Last Admin: 11/13/19 15:03 Dose: 100 ml Magnesium Oxide (Magnesium Oxide) 500 mg PO DAILY [facility] Last Admin: 11/15/19 08:14 Dose: 500 mg Morphine Sulfate (Morphine) 4 mg IVPUSH ONETIME ONE Stop: 11/12/19 22:28 Last Admin: 11/12/19 22:34 Dose: 4 mg Morphine Sulfate (Morphine) 2 mg IVPUSH Q2H PRN PRN Reason: Pain (severe 7-10) Last Admin: 11/13/19 13:14 Dose: 2 mg Ubidecarenone [Co Q- (10] 50 Mg) 50 mg PO DAILY [facility] Atorvastatin 40 Mg (Tab Own Med) 0 each PO BEDTIME [facility] Last Admin: 11/13/19 19:38 Dose: 0.5 each Ondansetron HCl (Zofran) 4 mg IVPUSH NOW STA Stop: 11/12/19 22:28 Last Admin: 11/12/19 22:41 Dose: 4 mg Ondansetron HCl (Zofran) 4 mg IV Q6H PRN PRN Reason: Nausea/Vomiting - Exam General: Reports: Alert, Oriented HEENT: Reports: Mucous Membr. Moist/[place]ck: Reports: Supple Lungs: Reports: Clear to Auscultation, Normal Respiratory Effort Cardiovascular: Reports: Regular Rate, Regular Rhythm GI/Abdominal Exam: Normal Bowel Sounds, Soft, Non-Tender Extremities: Normal Inspection, No Pedal Edema Skin: Reports: Warm, Dry Neurological: Reports: No New Focal Deficit
== END 2019-11-15 10:20 | disposition home or self-care (01) | DRG 689 ==
LOC: CC.ED 22:15 → CC.MS 11-13 00:40 → UNDOADMOB 11-13 00:40 → CC.MS 11-13 00:42 → UNDOADMOB 11-13 00:42 → OBSVTOIN 11-14 15:54 → CC.MS 11-14 15:54 → OBSVTOIN 11-14 16:07 → INTOOBSV 11-14 16:07
PROVIDERS: ADMIT Physician Assistant Medical; ATTEND Family Medicine
DX: N39.0 Urinary tract infection, site not specified (principal); M54.41 Lumbago with sciatica, right side; I26.93 Single subsegmental thrombotic pulmonary embolism without acute cor pulmonale; J98.11 Atelectasis; R73.9 Hyperglycemia, unspecified; N28.9 Disorder of kidney and ureter, unspecified; H54.7 Unspecified visual loss; I87.2 Venous insufficiency (chronic) (peripheral); E78.00 Pure hypercholesterolemia, unspecified; I10 Essential (primary) hypertension; M19.90 Unspecified osteoarthritis, unspecified site; M81.0 Age-related osteoporosis without current pathological fracture; M10.9 Gout, unspecified; E55.9 Vitamin D deficiency, unspecified; Z88.6 Allergy status to analgesic agent; Z79.82 Long term (current) use of aspirin; Z90.89 Acquired absence of other organs; Z90.49 Acquired absence of other specified parts of digestive tract; I26.99 Other pulmonary embolism without acute cor pulmonale; R50.9 Fever, unspecified; R10.9 Unspecified abdominal pain; Z98.49 Cataract extraction status, unspecified eye; Z79.51 Long term (current) use of inhaled steroids; Z88.8 Allergy status to other drugs, medicaments and biological substances; Z79.899 Other long term (current) drug therapy; Z90.710 Acquired absence of both cervix and uterus; Z90.721 Acquired absence of ovaries, unilateral; Z98.51 Tubal ligation status; Z79.01 Long term (current) use of anticoagulants
CPT/HCPCS: 36415; 71046; 71275; 74176; 76705; 80048; 80053; 81001; 82150; 83605; 83690; 83735; 84484; 85025; 85379; 87040; 87086; 93005; 96361; 96372; 96374; 96375; 96376; 99285-25; A9270-GY; G0378; J0696; J1650; J2270; J2405; J7030; J7040; Q9967

== ENCOUNTER 2020-02-10 10:11 | Emergency (ER) | payer MEDICARE, BC ==
[2020-02-10 10:13] VITALS: BP 140/70; PULSE 60
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
[2020-02-10 11:12] LABS: CHLORIDE,CL 102 mEq/L (98-106); SODIUM,NA 140 mEq/L (136-145)
[2020-02-10] MEDS ORDERED: Sodium Chloride 0.9% 1,000 ML IV ONE (11:24)
[2020-02-10] MEDS ORDERED: LORazepam 2 MG/ML Syringe IVPUSH ONE (12:19)
[2020-02-10] MEDS ORDERED: Morphine 2 MG/ML Syringe IVPUSH ONE (13:02)
[2020-02-10] MEDS ORDERED: Ondansetron 4 MG/2 ML SDV IVPUSH STA (13:02)
[2020-02-10] MEDS ORDERED: Metoclopramide 10 MG/2 ML SDV IVPUSH ONE (13:50)
[2020-02-10] MEDS ORDERED: diphenhydrAMINE 50 MG/ML SDV IVPUSH ONE (13:50)
== END 2020-02-10 15:37 ==
LOC: CC.ED 10:11
DX: F41.9 Anxiety disorder, unspecified (principal); F32.9 Major depressive disorder, single episode, unspecified; R51 Headache; R19.7 Diarrhea, unspecified; I10 Essential (primary) hypertension; E78.00 Pure hypercholesterolemia, unspecified; Z88.8 Allergy status to other drugs, medicaments and biological substances; Z79.899 Other long term (current) drug therapy; Z79.82 Long term (current) use of aspirin
CPT/HCPCS: 36415; 70450; 71046; 80053; 80305; 80307; 81001; 82550; 83605; 83615; 84484; 85025; 85610; 93005; 96361; 96374; 96375; 99284; 99285; J1200; J2060; J2270; J2405; J2765; J7030; U0002; 93010

== ENCOUNTER → 2022-10-16 | Day surgery (SDC) | payer MEDICARE, BC ==
[~2022-10-16] MED LIST: Ketamine 200 MG/20 ML MDV ONE; Phenylephrine 1% 10 MG/ML SDV ONE; Propofol 200 MG/20 ML SDV ONE; fentaNYL 50 MCG/ML SDV ONE
[2022-10-16] MEDS: Lactated Ringers 1,000 ML IV SCH (10:31)
[2022-10-16 14:46] VITALS: BP 132/68; PULSE 62
== END ==
LOC: EDSEX → CC.SDS 10:05 → MERGE 12:45
PROVIDERS: ATTEND Family Medicine
DX: R19.7 Diarrhea, unspecified (principal); Z88.6 Allergy status to analgesic agent; Z79.899 Other long term (current) drug therapy; Z79.82 Long term (current) use of aspirin; Z98.890 Other specified postprocedural states
CPT/HCPCS: J2370; J2704; J3010; J3490; J7120

== ENCOUNTER → 2022-11-19 | Day surgery (SDC) | payer MEDICARE, BC ==
[~2022-11-19] MED LIST changes: +Dexamethasone 4 MG/ML SDV ONE; +Glycopyrrolate 0.2 MG/ML SDV ONE; -Ketamine 200 MG/20 ML MDV ONE; +Ketorolac 30 MG/ML SDV ONE; +Lidocaine 2% 20 ML MDV ONE; +Midazolam 1 MG/ML 2 ML SDV ONE; +Neostigmine Methylsulfate 10 MG/10 ML MDV ONE; +Ondansetron 4 MG/2 ML SDV ONE; +ePHEDrine 50 MG/ML SDV ONE
[2022-11-19] MEDS: Lactated Ringers 1,000 ML IV SCH (07:15)
[2022-11-19] MEDS: Heparin Sodium 5,000 Units/ML Vial SUBCUT STA (07:58)
[2022-11-19] MEDS: Lidocaine 1% with EPINEPHrine 1:100,000 20 ML MDV INJECT ONE (08:46)
[2022-11-19 11:32] VITALS: BP 105/59; PULSE 76
== END ==
LOC: CC.SDS 06:58 → EDSTATUS 12:00
PROVIDERS: ATTEND Surgery
DX: R10.32 Left lower quadrant pain (principal); G89.29 Other chronic pain; I10 Essential (primary) hypertension; E78.5 Hyperlipidemia, unspecified; M81.8 Other osteoporosis without current pathological fracture; I26.99 Other pulmonary embolism without acute cor pulmonale; M50.90 Cervical disc disorder, unspecified, unspecified cervical region; Z79.899 Other long term (current) drug therapy; Z79.82 Long term (current) use of aspirin; Z98.890 Other specified postprocedural states; Z88.5 Allergy status to narcotic agent
CPT/HCPCS: 00840; J1100; J1644; J1885; J2250; J2370; J2405; J2704; J2710; J3010; J3490; J7120

== ENCOUNTER 2025-03-08 09:35 | Inpatient (IN) | payer MEDICARE, OTHER ==
[2025-03-08] MEDS ORDERED: Sodium Chloride 0.9% 10 ML Syringe FLUSH PRN (10:03)
[2025-03-08] MEDS ORDERED: Ondansetron 4 MG Tab.DIS PO PRN (10:03)
[2025-03-08] MEDS ORDERED: Ondansetron 4 MG/2 ML SDV IV PRN (10:03)
[2025-03-08] MEDS: Lactobacillus Rhamnosus GG (Probiotic) Cap PO SCH (19:27)
[2025-03-09] MEDS: Beta-Carotene (Vitamin A) w/Vitamin C & E plus Minerals Tab PO SCH (07:46)
[2025-03-09 07:51] LABS: ALANINE AMINOTRANSFERASE,ALT 15.0 U/L (12-78); ASPARTATE AMNIOTRANSFERASE,AST 12.0 U/L (15-37); BILIRUBIN TOTAL 0.7 mg/dL (0.0-1.0); BLOOD UREA NITROGEN,BUN 12.0 mg/dL (7-18); CARBON DIOXIDE,CO2 26.0 mmol/L (21-32); CHLORIDE,CL 108.0 mEq/L (98-106); CREATININE 0.8 mg/dL (0.6-1.0); EST CRCL DRUG DOSING (CG) 54.67 mL/min; GLUCOSE RANDOM 100.0 mg/dL (75-99); POTASSIUM,K 4.2 mEq/L (3.5-5.0); PROTEIN TOTAL,TP 6.3 g/dL (6.4-8.2); SODIUM,NA 141.0 mEq/L (136-145)
[2025-03-09 07:53] LABS: BASOPHILS ABSOLUTE AUTO 0.02 10^3/uL (0.00-0.50); BASOPHILS PERCENT AUTO 0.3 % (0-1); EOSINOPHILS ABSOLUTE AUTO 0.03 10^3/uL (0.00-1.50); EOSINOPHILS PERCENT AUTO 0.5 % (0-6); ESTIMATED GFR 77.0 mL/min (>=60); IMMATURE GRAN ABSOLUTE AUTO 0.01 10^3/uL (0.00-0.49); IMMATURE GRAN PERCENT AUTO 0.2 % (0.0-4.9); LYMPHOCYTES ABSOLUTE AUTO 1.13 10^3/uL (0.60-5.00); LYMPHOCYTES PERCENT AUTO 18.4 % (24-44); MONOCYTES ABSOLUTE AUTO 0.67 10^3/uL (0.00-1.50); MONOCYTES PERCENT AUTO 10.9 % (0-10); NEUTROPHILS ABSOLUTE AUTO 4.28 x10^3/uL (1.80-8.00); NEUTROPHILS PERCENT AUTO 69.7 % (41-71); PLATELET COUNT,PLT 130 10^3/uL (150-400); RED BLOOD CELL COUNT 3.77 x10^6/uL (4.00-5.50); WHITE BLOOD CELL COUNT,WBC 6.1 10^3/uL (4.0-11.0)
[2025-03-09] MEDS ORDERED: UBIDECARENONE 50 MG PO SCH (08:00)
[2025-03-10 07:09] LABS: ALANINE AMINOTRANSFERASE,ALT 21.0 U/L (12-78); ASPARTATE AMNIOTRANSFERASE,AST 15.0 U/L (15-37); BILIRUBIN TOTAL 0.3 mg/dL (0.0-1.0); BLOOD UREA NITROGEN,BUN 11.0 mg/dL (7-18); CARBON DIOXIDE,CO2 26.0 mmol/L (21-32); CHLORIDE,CL 108.0 mEq/L (98-106); CREATININE 0.8 mg/dL (0.6-1.0); EST CRCL DRUG DOSING (CG) 54.67 mL/min; GLUCOSE RANDOM 104.0 mg/dL (75-99); POTASSIUM,K 3.6 mEq/L (3.5-5.0); PROTEIN TOTAL,TP 6.2 g/dL (6.4-8.2); SODIUM,NA 141.0 mEq/L (136-145)
[2025-03-10 07:35] LABS: BASOPHILS ABSOLUTE AUTO 0.03 10^3/uL (0.00-0.50); BASOPHILS PERCENT AUTO 0.6 % (0-1); EOSINOPHILS ABSOLUTE AUTO 0.11 10^3/uL (0.00-1.50); EOSINOPHILS PERCENT AUTO 2.2 % (0-6); IMMATURE GRAN ABSOLUTE AUTO 0.01 10^3/uL (0.00-0.49); IMMATURE GRAN PERCENT AUTO 0.2 % (0.0-4.9); LYMPHOCYTES ABSOLUTE AUTO 1.34 10^3/uL (0.60-5.00); LYMPHOCYTES PERCENT AUTO 26.5 % (24-44); MONOCYTES ABSOLUTE AUTO 0.52 10^3/uL (0.00-1.50); MONOCYTES PERCENT AUTO 10.3 % (0-10); NEUTROPHILS ABSOLUTE AUTO 3.04 x10^3/uL (1.80-8.00); NEUTROPHILS PERCENT AUTO 60.2 % (41-71); PLATELET COUNT,PLT 142 10^3/uL (150-400); RED BLOOD CELL COUNT 3.82 x10^6/uL (4.00-5.50); WHITE BLOOD CELL COUNT,WBC 5.1 10^3/uL (4.0-11.0)
[2025-03-10 07:43] LABS: ESTIMATED GFR 77.0 mL/min (>=60)
[2025-03-10 15:27] VITALS: BP 132/64; PULSE 83
== END 2025-03-10 12:45 | disposition home or self-care (01) | DRG 690 ==
LOC: UNDOADMIN 09:35 → CC.MS 09:35
PROVIDERS: ADMIT Physician Assistant Medical; ATTEND Physician Assistant Medical
DX: N12 Tubulo-interstitial nephritis, not specified as acute or chronic (principal); H54.7 Unspecified visual loss; E78.00 Pure hypercholesterolemia, unspecified; I10 Essential (primary) hypertension; M19.90 Unspecified osteoarthritis, unspecified site; M81.0 Age-related osteoporosis without current pathological fracture; B96.89 Other specified bacterial agents as the cause of diseases classified elsewhere; F41.9 Anxiety disorder, unspecified; F32.A Depression, unspecified; Z98.49 Cataract extraction status, unspecified eye; Z90.89 Acquired absence of other organs; Z90.49 Acquired absence of other specified parts of digestive tract; Z90.710 Acquired absence of both cervix and uterus; Z98.51 Tubal ligation status; Z90.722 Acquired absence of ovaries, bilateral; Z88.5 Allergy status to narcotic agent; Z79.899 Other long term (current) drug therapy; Z79.82 Long term (current) use of aspirin; Z79.01 Long term (current) use of anticoagulants
CPT/HCPCS: 36415; 80053; 83605; 85025; 86140; 99223; 99233; 99239; A9270-GY; J0696; J7030